=== PATIENT | male | born 1935 | race Caucasian/White ===

== ENCOUNTER 2017-01-22 12:07 | Emergency (ER) | payer MEDICARE, BC ==
[2017-01-22] MEDS ORDERED: cefTRIAXone 1 GM, Lidocaine 1% 2.1 ML IM ONE ×2 (13:54)
--- NOTE | 2017-01-22 13:56 | EDM.PDOC ---
ED HPI GENERAL MEDICAL PROBLEM - General Chief Complaint: Lower Extremity Injury/Pain Stated Complaint: LT FOOT/HEAL PAIN Time Seen by Provider: 01/22/17 12:45 Source of Information: Reports: Patient, Family History Limitations: Reports: No Limitations - History of Present Illness INITIAL COMMENTS - FREE TEXT/NARRATIVE: pt arrived with a very painful heel. He was concerned that he had gotten gout again. he is having trouble ambulating. Onset: Gradual Duration: Day(s): Location: Reports: Lower Extremity, Left Associated Symptoms: Reports: Other ( Pt has marked swelling in the rt leg with weeping. He has wet dressings on alot and the skin looks maserated. ) Left Feet Pain Score (Numeric/FACES): 8 - Related Data Allergies Allergy/AdvReac Type Severity Reaction Status Date / Time codeine Allergy Cannot Verified 01/22/17 12:38 Remember Home Meds: Home Meds Aspirin [Halfprin] 81 mg PO DAILY 06/19/14 [History] Carvedilol 25 mg PO BID 06/19/14 [History] Furosemide [Lasix] 40 mg PO BID 06/19/14 [History] Insulin Glarg,Human.Rec.Analog [Lantus] 70 units SQ BEDTIME 06/19/14 [History] Isosorbide Mononitrate [Isosorbide Mononitrate ER] 30 mg PO BID 06/19/14 [ History] Lisinopril 40 mg PO DAILY 06/19/14 [History] Metolazone 2.5 mg PO MOWEFR 06/19/14 [History] Simvastatin [Zocor] 20 mg PO BEDTIME 06/19/14 [History] amLODIPine [Norvasc] 10 mg PO DAILY 06/19/14 [History] *O2 2 l INH ASDIRECTED 12/09/14 [History] Latanoprost 1 drop TOP BEDTIME 12/09/14 [History] Insulin Aspart [Novolog] 26 unit SQ BID 01/22/17 [History] Past Medical History Cardiovascular History: Reports: CAD, Heart Failure, Hypertension, [place] Respiratory History: Reports: COPD, Other (See Below) Other Respiratory History: Home O2 C pap Genitourinary History: Reports: Renal Disease Other Genitourinary History: Moderate kidney failure known kidney stone Musculoskeletal History: Reports: Gout Endocrine/Metabolic History: Reports: Diabetes, Type II Dermatologic History: Reports: Other (See Below) Other Dermatologic History: ozing legs seconday to edema - Infectious Disease History Infectious Disease History: Reports: Chicken Pox, Measles, Mumps - Past Surgical History HEENT Surgical History: Reports: Cataract Surgery Other HEENT Surgeries/Procedures: laser and eye injections Cardiovascular Surgical History: Reports: Coronary Artery Bypass GI Surgical History: Reports: Hernia, Abdominal Social & Family History - Tobacco Use Smoking Status *Q: Never Smoker Years of Tobacco use: 30 Used Tobacco, but Quit: Yes Month Tobacco Last Used: November Second Hand Smoke Exposure: No - Caffeine Use Caffeine Use: Reports: Coffee - Alcohol Use Days Per Week of Alcohol Use: 7 Number of Drinks Per Day: 2 Total Drinks Per Week: 14 - Recreational Drug Use Recreational Drug Use: No Review of Systems - Review of Systems Review Of Systems: See Below Constitutional: Reports: No Symptoms Eyes: Reports: No Symptoms Ears: Reports: No Symptoms Nose: Reports: No Symptoms Mouth/Throat: Reports: No Symptoms Respiratory: Reports: Other ( no change. ) Cardiovascular: Reports: No Symptoms GI/Abdominal: Reports: No Symptoms Genitourinary: Reports: No Symptoms Musculoskeletal: Reports: Other (pain in the left heel area. ) Neurological: Reports: No Symptoms ED EXAM, GENERAL - Physical Exam Exam: See Below Free Text/Narrative:: pt arrived with marked pain in the left hel. He has marked swelling in the left leg. He has maserated skin omn the calf of the leg He has open area on the heel which looked quite red. Exam Limited By: No Limitations General Appearance: Alert, Anxious Ears: Normal TMs Nose: Normal Inspection Throat/Mouth: Normal Inspection Head: Atraumatic Neck: Normal Inspection Respiratory/Chest: No Respiratory Distress Cardiovascular: Regular Rate, Rhythm GI/Abdominal: Soft, Non-Tender (Male) Exam: Deferred Rectal (Males) Exam: Deferred Extremities: Other ( both legs are wrapped. The rt is doing well. The left is weeping and huge The heel is raw and he has broken the skin. The area where the skin is broken is vey tender, ) Neurological: Alert, Oriented, Normal Cognition Psychiatric: Anxious Course - Vital Signs Last Recorded V/S: Last Vital Signs Temp 36.7 C 01/22/17 13:53 Pulse 58 L 01/22/17 15:00 Resp 18 01/22/17 15:00 BP 188/94 H 01/22/17 15:00 Pulse Ox 91 L 01/22/17 15:00 - Orders/Labs/Meds Labs: Laboratory Tests 01/22/17 Range/Units 13:04 WBC 11.3 H (4.5-11.0) K/uL RBC 4.36 (4.30-5.90) M/uL Hgb 13.6 (12.0-15.0) g/dL Hct 41.6 (40.0-54.0) % MCV 95 (80-98) fL MCH 31 (27-31) pg MCHC 33 (32-36) % Plt Count 235 (150-400) K/uL Neut % (Auto) 82 H (36-66) % Lymph % (Auto) 15 L (24-44) % [place] % (Auto) 3 (2-6) % Eos % (Auto) 0 L (2-4) % Baso % (Auto) 0 (0-1) % Meds: Medications Discontinued Medications Generic Name Dose Route Start Last Admin Trade Name Gabriel PRN Reason Stop Dose Admin Ceftriaxone Sodium 1 gm/ 0 gm 01/22/17 13:54 01/22/17 14:05 Lidocaine HCl 2.1 ml IM 01/22/17 13:55 1 inj ONETIME ONE Administration - Re-Assessments/Exams Free Text/Narrative Re-Assessment/Exam: 01/22/17 15:35 pt had a wbc which was normal. He had other labs yesterday and I did get those values. Dr farmer consulted and will follow this leg. Departure - Departure Time of Disposition: 15:00 Disposition: Home, Self-Care 01 Condition: Fair Clinical Impression: Acute stasis dermatitis, Diabetes - Discharge Information Instructions: Type 2 Diabetes Mellitus, Adult, Edema, [id number] Referrals: Evaristo Browning PA [Primary Care Provider] - Forms: ED Department Discharge Care Plan Goals: Dr Farmer to see and manage pt.
[2017-01-22 17:02] VITALS: BP 188/94
== END 2017-01-22 17:05 | disposition home or self-care (01) ==
LOC: JP.ED 12:07
DX: I87.2 Venous insufficiency (chronic) (peripheral) (principal); E11.9 Type 2 diabetes mellitus without complications; I25.10 Atherosclerotic heart disease of native coronary artery without angina pectoris; I11.0 Hypertensive heart disease with heart failure; I50.9 Heart failure, unspecified; J44.9 Chronic obstructive pulmonary disease, unspecified; I25.2 Old myocardial infarction; Z98.49 Cataract extraction status, unspecified eye; Z95.1 Presence of aortocoronary bypass graft; Z98.890 Other specified postprocedural states; Z88.5 Allergy status to narcotic agent; Z79.82 Long term (current) use of aspirin; Z79.4 Long term (current) use of insulin; Z79.899 Other long term (current) drug therapy
CPT/HCPCS: 36415; 82962; 85025; 96372; 99284; J0696

== ENCOUNTER 2017-01-31 12:14 | Inpatient (IN) | payer MEDICARE, BC ==
[2017-01-31] MEDS ORDERED: Meropenem 500 MG in Sodium Chloride 0.9% 50 ML IV ONE ×2 (12:38→13:15)
--- NOTE | 2017-01-31 13:37 | EDM.PDOC ---
ED HPI GENERAL MEDICAL PROBLEM - General Chief Complaint: General Stated Complaint: PAIN IN LOW BACK Time Seen by Provider: 01/31/17 12:25 Source of Information: Reports: Patient, EMS, Family History Limitations: Reports: No Limitations - History of Present Illness INITIAL COMMENTS - FREE TEXT/NARRATIVE: 81-year-old male undergoing treatment for lower extremity skin lesions and significant lower extremity edema and vascular insufficiency was due to have a wound recheck this afternoon at the clinic but this morning developed shaking chills and fever and was too weak to get out of bed. He denies a new cough, abdominal pain, nausea or vomiting but just has profound weakness. He was supposed to take the dressings off his legs, get cleaned up with a shower and then going to the clinic. He denies dysuria. Onset: Gradual (Symptoms developed overnight) Severity: Moderate Associated Symptoms: Reports: Fever/Chills, Weakness. Denies: Shortness of Breath Bilateral Knee Pain Score (Numeric/FACES): 8 - Related Data Allergies Allergy/AdvReac Type Severity Reaction Status Date / Time codeine Allergy Cannot Verified 01/22/17 12:38 Remember Home Meds: Home Meds Aspirin [Halfprin] 81 mg PO DAILY 06/19/14 [History] Carvedilol 25 mg PO BID 06/19/14 [History] Furosemide [Lasix] 40 mg PO BID 06/19/14 [History] Insulin Glarg,Human.Rec.Analog [Lantus] 70 units SQ BEDTIME 06/19/14 [History] Isosorbide Mononitrate [Isosorbide Mononitrate ER] 30 mg PO BID 06/19/14 [ History] Lisinopril 40 mg PO DAILY 06/19/14 [History] Simvastatin [Zocor] 20 mg PO BEDTIME 06/19/14 [History] *O2 2 l INH ASDIRECTED 12/09/14 [History] Latanoprost 1 drop TOP BEDTIME 12/09/14 [History] Insulin Aspart [Novolog] 26 unit SQ BID 01/22/17 [History] Acetaminophen 1,000 mg PO TID PRN 01/31/17 [History] Allopurinol [Zyloprim] 150 mg PO DAILY 01/31/17 [History] Aspirin 81 mg PO DAILY 01/31/17 [History] Famotidine 20 mg PO BEDTIME 01/31/17 [History] Insulin Degludec [Tresiba Flextouch U-200] 66 unit SUBCNJ DAILY 01/31/17 [ History] Magnesium Oxide 500 mg PO DAILY 01/31/17 [History] Tamsulosin [Flomax] 0.4 mg PO DAILY 01/31/17 [History] Past Medical History Cardiovascular History: Reports: CAD, Heart Failure, Hypertension, [place] Respiratory History: Reports: COPD, Other (See Below) Other Respiratory History: Home O2 C pap Genitourinary History: Reports: Renal Disease Other Genitourinary History: Moderate kidney failure known kidney stone Musculoskeletal History: Reports: Gout Endocrine/Metabolic History: Reports: Diabetes, Type II Dermatologic History: Reports: Other (See Below) Other Dermatologic History: ozing legs seconday to edema - Infectious Disease History Infectious Disease History: Reports: Chicken Pox, Measles, Mumps - Past Surgical History HEENT Surgical History: Reports: Cataract Surgery Other HEENT Surgeries/Procedures: laser and eye injections Cardiovascular Surgical History: Reports: Coronary Artery Bypass GI Surgical History: Reports: Hernia, Abdominal Social & Family History - Tobacco Use Smoking Status *Q: Unknown Ever Smoked Years of Tobacco use: 30 Used Tobacco, but Quit: Yes Month Tobacco Last Used: November Second Hand Smoke Exposure: No - Caffeine Use Caffeine Use: Reports: Coffee - Alcohol Use Days Per Week of Alcohol Use: 7 Number of Drinks Per Day: 2 Total Drinks Per Week: 14 - Recreational Drug Use Recreational Drug Use: No ED ROS GENERAL - Review of Systems Review Of Systems: See Below Constitutional: Reports: Fever, Chills, Malaise, Weakness HEENT: Reports: No Symptoms Respiratory: Reports: Shortness of Breath (Chronic and stable), Cough Cardiovascular: Reports: No Symptoms. Denies: Chest Pain GI/Abdominal: Denies: Abdominal Pain, Nausea, Vomiting : Reports: No Symptoms Skin: Reports: Other (Chronic ulcerations of the lower extremities, exudative weeping from his wound on the posterior left calf) Neurological: Reports: Confusion (Some moderate confusion this morning) Psychiatric: Reports: No Symptoms ED EXAM, SEPSIS - Physical Exam Exam: See Below Exam Limited By: No Limitations General Appearance: Alert, Mild Distress (Chilled, very uncomfortable), Other ( Patient is answering questions appropriately) Respiratory/Chest: No Respiratory Distress, Rhonchi (Diffuse scattered rhonchi) Cardiovascular: Regular Rate, Rhythm GI/Abdominal Exam: Other (Patient is morbidly obese, no focal tenderness to palpation) Extremities: Other (The dressings on his lower extremities were removed and revealed a very warm, erythematous and tender medial left leg to the thigh and almost to the groin. There was malodorous drainage from the posterior wound of the left lower leg.) Neurological: Alert, Oriented Psychiatric: Normal Affect, Normal Mood Course - Vital Signs Last Recorded V/S: Last Vital Signs Temp 103.5 F H 01/31/17 15:49 Pulse 104 H 01/31/17 15:49 Resp 20 01/31/17 15:49 BP 185/116 H 01/31/17 16:10 Pulse Ox 93 L 01/31/17 15:49 - Orders/Labs/Meds Orders: Active Orders 24 hr Category Date Time Status CULTURE BLOOD [BC] Urgent Lab 01/31/17 12:30 Received CULTURE BLOOD [BC] Urgent Lab 01/31/17 12:35 Received Blood Culture x2 Reflex Set [OM.PC] Urgent Oth 01/31/17 12:22 Ordered Medication Orders Acetaminophen (Tylenol Extra Strength) 1,000 mg PO TID [facility] Last Admin: 01/31/17 16:05 Dose: 1,000 mg Albuterol (Proventil Neb Soln) 2.5 mg NEB Q4H PRN PRN Reason: Shortness Of Breath/wheezing Allopurinol (Zyloprim) 100 mg PO DAILY [facility] Aspirin (Aspirin) 81 mg PO DAILY [facility] Carvedilol (Coreg) 25 mg PO BID [facility] Famotidine (Pepcid) 20 mg PO BEDTIME [facility] Heparin Sodium (Porcine) (Heparin Sodium) 5,000 units SUBCUT BID [facility] Hydromorphone HCl (Dilaudid) 0.5 - 1 mg IVPUSH Q2H PRN PRN Reason: Pain (severe 7-10) Vancomycin HCl 1.75 gm/ Sodium (Chloride) 250 mls @ 150 mls/hr IV Q24H JANAK Meropenem 1 gm/ Sodium (Chloride) 50 mls @ 100 mls/hr IV Q8H [facility] Sodium Chloride (Normal Saline) 1,000 mls @ 125 mls/hr IV ASDIRECTED [facility] Last Admin: 01/31/17 15:58 Dose: 125 mls/hr Insulin Aspart (Novolog) 0 unit SUBCUT QIDACANDBED [facility] PRN Reason: Protocol Last Admin: 01/31/17 17:01 Dose: Not Given Insulin Detemir (Levemir) 30 unit SUBCUT BID [facility] Isosorbide Mononitrate (Imdur) 30 mg PO BID [facility] Latanoprost (Xalatan 0.005% Ophth Soln) 0 ml EYEBOTH BEDTIME [facility] Lisinopril (Prinivil) 40 mg PO DAILY [facility] Ondansetron HCl (Zofran Odt) 4 mg PO Q6H PRN PRN Reason: Nausea able to take PO Ondansetron HCl (Zofran) 4 mg IV Q6H PRN PRN Reason: Nausea/Vomiting Oxycodone HCl (Oxycodone) 5 mg PO Q4H PRN PRN Reason: Pain (moderate 4-6) Last Admin: 01/31/17 17:39 Dose: 5 mg Polyethylene Glycol (Miralax) 17 gm PO DAILY PRN PRN Reason: Constipation Tamsulosin HCl (Flomax) 0.4 mg PO DAILY [facility] Labs: Laboratory Tests 01/31/17 01/31/17 01/31/17 Range/Units 12:30 12:30 12:30 WBC 28.8 H (4.5-11.0) K/uL RBC 4.65 (4.30-5.90) M/uL Hgb 14.4 (12.0-15.0) g/dL Hct 44.5 (40.0-54.0) % MCV 96 (80-98) fL MCH 31 (27-31) pg MCHC 32 (32-36) % Plt Count 199 (150-400) K/uL Neut % (Auto) 89 H (36-66) % Lymph % (Auto) 7 L (24-44) % [place] % (Auto) 3 (2-6) % Eos % (Auto) 0 L (2-4) % Baso % (Auto) 0 (0-1) % Sodium 139 L (140-148) mmol/L Potassium 3.8 (3.6-5.2) mmol/L Chloride 100 (100-108) mmol/L Carbon Dioxide 34 H (21-32) mmol/L Anion Gap 8.8 (5.0-14.0) mmol/L BUN 44 H (7-18) mg/dL Creatinine 2.5 H D (0.8-1.3) mg/dL Est Cr Clr Drug Dosing 21.73 mL/min Estimated GFR (MDRD) 25 L (>60) Glucose 151 H (74-106) mg/dL Lactic Acid 1.5 (0.4-2.0) mmol/L Calcium 8.3 L (8.5-10.1) mg/dL Total Bilirubin 0.6 (0.2-1.0) mg/dL AST 31 D (15-37) U/L ALT 42 D (12-78) U/L Alkaline Phosphatase 88 (46-116) U/L C-Reactive Protein 10.64 H (0.0-0.3) mg/dL Total Protein 6.2 L (6.4-8.2) g/dL Albumin 2.6 L (3.4-5.0) g/dL Globulin 3.6 H (2.3-3.5) g/dL Albumin/Globulin Ratio 0.7 L (1.2-2.2) Meds: Medications Generic Name Dose Route Start Last Admin Trade Name Freq PRN Reason Stop Dose Admin Acetaminophen 1,000 mg 01/31/17 15:35 01/31/17 16:05 Tylenol Extra Strength PO 1,000 mg TID JANAK Administration Albuterol 2.5 mg 01/31/17 15:35 Proventil Neb Soln NEB Q4H PRN Shortness Of Breath/wheezing Allopurinol 100 mg 02/01/17 09:00 Zyloprim PO DAILY [facility] Aspirin 81 mg 02/01/17 09:00 Aspirin PO DAILY [facility] Carvedilol 25 mg 01/31/17 21:00 Coreg PO BID [facility] Famotidine 20 mg 01/31/17 21:00 Pepcid PO BEDTIME [facility] Heparin Sodium (Porcine) 5,000 units 01/31/17 21:00 Heparin Sodium SUBCUT BID [facility] Hydromorphone HCl 0.5 - 1 mg 01/31/17 15:35 Dilaudid IVPUSH Q2H PRN Pain (severe 7-10) Vancomycin HCl 1.75 gm/ Sodium 250 mls @ 150 mls/hr 02/01/17 14:00 Chloride IV Q24H JANAK Meropenem 1 gm/ Sodium 50 mls @ 100 mls/hr 01/31/17 20:00 Chloride IV Q8H [facility] Sodium Chloride 1,000 mls @ 125 mls/hr 01/31/17 15:35 01/31/17 15:58 Normal Saline IV 125 mls/hr ASDIRECTED [facility] Administration Insulin Aspart 0 unit 01/31/17 17:00 01/31/17 17:01 Novolog SUBCUT Not Given QIDACANDBED [facility] Protocol Insulin Detemir 30 unit 01/31/17 21:00 Levemir SUBCUT BID [facility] Isosorbide Mononitrate 30 mg 01/31/17 21:00 Imdur PO BID [facility] Latanoprost 0 ml 01/31/17 21:00 Xalatan 0.005% Ophth Soln EYEBOTH BEDTIME [facility] Lisinopril 40 mg 02/01/17 09:00 Prinivil PO DAILY [facility] Ondansetron HCl 4 mg 01/31/17 15:35 Zofran Odt PO Q6H PRN Nausea able to take PO Ondansetron HCl 4 mg 01/31/17 15:35 Zofran IV Q6H PRN Nausea/Vomiting Oxycodone HCl 5 mg 01/31/17 15:35 01/31/17 17:39 Oxycodone PO 5 mg Q4H PRN Administration Pain (moderate 4-6) Polyethylene Glycol 17 gm 01/31/17 15:35 Miralax PO DAILY PRN Constipation Tamsulosin HCl 0.4 mg 02/01/17 09:00 Flomax PO DAILY [facility] Discontinued Medications Generic Name Dose Route Start Last Admin Trade Name Freq PRN Reason Stop Dose Admin Meropenem 500 mg/ Sodium 50 mls @ 100 mls/hr 01/31/17 13:15 01/31/17 13:19 Chloride IV 01/31/17 13:44 100 mls/hr ONETIME ONE Administration Vancomycin HCl 1.75 gm/ Sodium 250 mls @ 150 mls/hr 01/31/17 14:00 01/31/17 14:07 Chloride IV 150 mls/hr Q24H [facility] Administration - Re-Assessments/Exams Free Text/Narrative Re-Assessment/Exam: 01/31/17 13:36 With a temperature of 103.8, a large source of infection on the left leg and chills, the patient workup and treatment was initiated under the sepsis protocol. Fluid replacement was started, blood cultures were obtained, lactic acid, CBC and CMP. A CRP was markedly elevated as well as the white count, however lactic acid was normal. He was started on 500 mg of IV meropenem. Dr. De La Rosa of the hospitalist service was asked to be consulted to assist with treatment and admission Departure - Departure Time of Disposition: 15:53 Disposition: Admitted As Inpatient 68 Condition: Poor Clinical Impression: Cellulitis of leg, left, Sepsis due to cellulitis, CKD (chronic kidney disease) , stage III, Diabetes mellitus, type II, insulin dependent - Discharge Information - My Orders Last 24 Hours: My Active Orders 01/31/17 12:22 Blood Culture x2 Reflex Set [OM.PC] Urgent 01/31/17 12:30 CULTURE BLOOD [BC] Urgent 01/31/17 12:35 CULTURE BLOOD [BC] Urgent - Assessment/Plan Last 24 Hours: My Active Orders 01/31/17 12:22 Blood Culture x2 Reflex Set [OM.PC] Urgent 01/31/17 12:30 CULTURE BLOOD [BC] Urgent 01/31/17 12:35 CULTURE BLOOD [BC] Urgent
--- NOTE | 2017-01-31 14:11 | PCM.HP ---
H&P History of Present Illness - General Date of Service: 01/31/17 Admit Problem/Dx: Admission Diagnosis/Problem Admission Diagnosis/Problem Cellulitis of leg Source of Information: Patient, Family, Provider History Limitations: Reports: No Limitations - History of Present Illness Initial Comments - Free Text/Narative: Blair presents to the emergency room today with fever, weakness and lethargy. He reports onset of fever sometime last night when he noted chills as well as subjective fevers. No temperatures were measured at home. He has had progressive weakness since that time. He notes increasing aching pain in his left ankle that has spread up into his left calf and up into the thigh. Pain has been moderate and is worse with any sort of pressure. He hasn't taken anything at home to make it feel better. Heel pain seems to be getting worse but has been present for a couple of weeks. He feels like he is a little more short of breath than usual but does not have much in the way of a cough. Appetite and energy have both been decreased for the past 24 hours. He was too weak to get out of bed this morning so he called an ambulance. Workup in the emergency room has revealed an impressive cellulitis and lymphangitis of the left leg. He has an open wound on the left medial lower leg that has serosanguineous and some mild. With drainage noted. He has been started on antibiotics and will be admitted for management of cellulitis. - Related Data Allergies/Adverse Reactions: Allergies Allergy/AdvReac Type Severity Reaction Status Date / Time codeine Allergy Cannot Verified 01/22/17 12:38 Remember Home Medications: Home Meds Aspirin [Halfprin] 81 mg PO DAILY 06/19/14 [History] Carvedilol 25 mg PO BID 06/19/14 [History] Furosemide [Lasix] 40 mg PO BID 06/19/14 [History] Insulin Glarg,Human.Rec.Analog [Lantus] 70 units SQ BEDTIME 06/19/14 [History] Isosorbide Mononitrate [Isosorbide Mononitrate ER] 30 mg PO BID 06/19/14 [ History] Lisinopril 40 mg PO DAILY 06/19/14 [History] Simvastatin [Zocor] 20 mg PO BEDTIME 06/19/14 [History] *O2 2 l INH ASDIRECTED 12/09/14 [History] Latanoprost 1 drop TOP BEDTIME 12/09/14 [History] Insulin Aspart [Novolog] 26 unit SQ BID 01/22/17 [History] Acetaminophen 1,000 mg PO TID PRN 01/31/17 [History] Allopurinol [Zyloprim] 150 mg PO DAILY 01/31/17 [History] Aspirin 81 mg PO DAILY 01/31/17 [History] Famotidine 20 mg PO BEDTIME 01/31/17 [History] Insulin Degludec [Tresiba Flextouch U-200] 66 unit SUBCNJ DAILY 01/31/17 [ History] Magnesium Oxide 500 mg PO DAILY 01/31/17 [History] Tamsulosin [Flomax] 0.4 mg PO DAILY 01/31/17 [History] Past Medical History Cardiovascular History: Reports: CAD, Heart Failure, Hypertension, [place] Respiratory History: Reports: COPD, Other (See Below) Other Respiratory History: Home O2 C pap Genitourinary History: Reports: Renal Disease Other Genitourinary History: Moderate kidney failure known kidney stone Musculoskeletal History: Reports: Gout Endocrine/Metabolic History: Reports: Diabetes, Type II Dermatologic History: Reports: Other (See Below) Other Dermatologic History: ozing legs seconday to edema - Infectious Disease History Infectious Disease History: Reports: Chicken Pox, Measles, Mumps - Past Surgical History HEENT Surgical History: Reports: Cataract Surgery Other HEENT Surgeries/Procedures: laser and eye injections Cardiovascular Surgical History: Reports: Coronary Artery Bypass GI Surgical History: Reports: Hernia, Abdominal Social & Family History - Family History Endocrine/Metabolic: Reports: Diabetes, type II - Tobacco Use Smoking Status *Q: Unknown Ever Smoked Years of Tobacco use: 30 Used Tobacco, but Quit: Yes Month Tobacco Last Used: November Second Hand Smoke Exposure: No - Caffeine Use Caffeine Use: Reports: Coffee - Alcohol Use Days Per Week of Alcohol Use: 7 Number of Drinks Per Day: 2 Total Drinks Per Week: 14 - Recreational Drug Use Recreational Drug Use: No H&P Review of Systems - Review of Systems: Review Of Systems: See Below Free Text/Narrative: A complete 12 point review of systems was obtained. Pertinent positives and negatives are noted in the history of present illness. All other systems were reviewed and were negative except as noted. Exam - Exam Exam: See Below - Vital Signs Vital Signs: Last Vital Signs Temp 39.9 C H 01/31/17 12:21 Pulse 91 01/31/17 12:58 Resp 20 01/31/17 12:58 BP 205/92 H 01/31/17 12:58 Pulse Ox 96 01/31/17 12:58 Weight: 120.656 kg - Exam Quality Assessment: Supplemental Oxygen General: Alert, Oriented, Cooperative, Mild Distress HEENT: Conjunctiva Clear. No: Mucosa Moist & [place] (dry), Scleral Icterus Neck: Supple, Trachea Midline Lungs: Clear to Auscultation, Normal Respiratory Effort Cardiovascular: Regular Rate, Regular Rhythm, Systolic Murmur GI/Abdominal Exam: Normal Bowel Sounds, Soft, Non-Tender, No Distention, Other ( obese) Extremities: Pedal Edema (pitting edema to the knee on the left, minimal on the right), Increased Warmth (left medial leg from foot to thigh). No: Joint Swelling Skin: Warm, Dry, Rash (erythema right medial thigh. large open area left medial leg with some ss drainage and some mild purulent drainage) Neuro Extensive - Mental Status: Alert, Oriented x3, Nl Response to Commands Neuro Extensive - Motor, Sensory, Reflexes: CN II-XII Intact. No: Dysarthria, Abnormal Motor, Tremor Psychiatric: Alert, Normal Affect - Patient Data Lab Results Last 24 hrs: Laboratory Results - last 24 hr 01/31/17 01/31/17 01/31/17 Range/Units 12:30 12:30 12:30 WBC 28.8 H (4.5-11.0) K/uL RBC 4.65 (4.30-5.90) M/uL Hgb 14.4 (12.0-15.0) g/dL Hct 44.5 (40.0-54.0) % MCV 96 (80-98) fL MCH 31 (27-31) pg MCHC 32 (32-36) % Plt Count 199 (150-400) K/uL Neut % (Auto) 89 H (36-66) % Lymph % (Auto) 7 L (24-44) % [place] % (Auto) 3 (2-6) % Eos % (Auto) 0 L (2-4) % Baso % (Auto) 0 (0-1) % Sodium 139 L (140-148) mmol/L Potassium 3.8 (3.6-5.2) mmol/L Chloride 100 (100-108) mmol/L Carbon Dioxide 34 H (21-32) mmol/L Anion Gap 8.8 (5.0-14.0) mmol/L BUN 44 H (7-18) mg/dL Creatinine 2.5 H D (0.8-1.3) mg/dL Est Cr Clr Drug Dosing 21.73 mL/min Estimated GFR (MDRD) 25 L (>60) Glucose 151 H (74-106) mg/dL Lactic Acid 1.5 (0.4-2.0) mmol/L Calcium 8.3 L (8.5-10.1) mg/dL Total Bilirubin 0.6 (0.2-1.0) mg/dL AST 31 D (15-37) U/L ALT 42 D (12-78) U/L Alkaline Phosphatase 88 (46-116) U/L C-Reactive Protein 10.64 H (0.0-0.3) mg/dL Total Protein 6.2 L (6.4-8.2) g/dL Albumin 2.6 L (3.4-5.0) g/dL Globulin 3.6 H (2.3-3.5) g/dL Albumin/Globulin Ratio 0.7 L (1.2-2.2) Result Diagrams: 01/31/17 12:30 01/31/17 12:30 *Q Meaningful Use (ADM) - VTE *Q VTE Criteria *Q: VTE Mechanical Contraindications *Q: Bilateral Lower Edema - VTE Risk Assess *Q Each Risk Factor Represents 1 Point: Swollen Legs, Current, Abnormal Pulmonary Function (COPD) Total Score 1 Point Risk Factors: 2 Each Risk Factor Represents 2 Points: Morbid Obesity (BMI Greater than 40) Total Score 2 Point Risk Factors: 2 Each Risk Factor Represents 3 Points: Age 75 Years or Greater Total Score 3 Point Risk Factors: 3 Each Risk Factor Represents 5 Points: None Total Score 5 Point Risk Factors: 0 Venous Thromboembolism Risk Factor Score *Q: 7 - Stroke *Q Stroke Criteria *Q: - AMI *Q AMI Criteria *Q: - Problem List (1) Cellulitis of leg, left SNOMED Code(s): 710595914 ICD Code: L03.116 - CELLULITIS OF LEFT LOWER LIMB Status: Acute Current Visit: Yes (2) Acute kidney injury SNOMED Code(s): 27996198 ICD Code: N17.9 - ACUTE KIDNEY FAILURE, UNSPECIFIED Status: Acute Current Visit: Yes (3) Diabetes mellitus, type II, insulin dependent SNOMED Code(s): 315714758 ICD Code: E11.9 - TYPE 2 DIABETES MELLITUS WITHOUT COMPLICATIONS; Z79.4 - ROAD CONTRACTOR (CURRENT) USE OF INSULIN Status: Chronic Current Visit: Yes (4) COPD (chronic obstructive pulmonary disease) SNOMED Code(s): 92584107 ICD Code: J44.9 - CHRONIC OBSTRUCTIVE PULMONARY DISEASE, UNSPECIFIED Status : Chronic Current Visit: Yes Qualifiers: COPD type: unspecified COPD Qualified Code(s): J44.9 - Chronic obstructive pulmonary disease, unspecified (5) Diastolic congestive heart failure SNOMED Code(s): 852435133, 828638070 ICD Code: I50.30 - UNSPECIFIED DIASTOLIC (CONGESTIVE) HEART FAILURE Status : Chronic Current Visit: Yes Qualifiers: Congestive heart failure chronicity: chronic Qualified Code(s): I50.32 - Chronic diastolic (congestive) heart failure Problem List Initiated/Reviewed/Updated: Yes Orders Last 24hrs: Active Orders 24 hr Category Date Time Status Patient Status Manage Transfer [TRANSFER] Routine ADT 01/31/17 13:50 Ordered Vital Signs [RC] Q1H Care 01/31/17 12:22 Active CULTURE BLOOD [BC] Urgent Lab 01/31/17 12:30 Received CULTURE BLOOD [BC] Urgent Lab 01/31/17 12:35 Received Vancomycin 1.75 gm Med 01/31/17 14:00 Active Sodium Chloride 0.9% [Normal Saline] 250 ml IV Q24H Blood Culture x2 Reflex Set [OM.PC] Urgent Oth 01/31/17 12:22 Ordered Resuscitation Status Routine Resus Stat 01/31/17 13:52 Ordered Medication Orders Vancomycin HCl 1.75 gm/ Sodium (Chloride) 250 mls @ 150 mls/hr IV Q24H JANAK Assessment/Plan Comment:: Assessment and plan - Cellulitis and lymphangitis left leg - open wound on the left medial leg probably secondary to poor skin quality of the setting of chronic lymphedema and diabetes. There is no evidence for sepsis at this time with normal blood pressure and normal heart rate. With his diabetes he is at risk for a variety of organisms. No history of MRSA. Not safe for outpatient management at this time with significant fever and leukocytosis as well as his weakness. -Vancomycin and meropenem -Follow-up blood cultures -Consult Dr. Farmer for assistance with wound care -Pain control -Heel padding to reduce heel pain -Leave wound open to the air tonight for close monitoring, wound care will be readdressed tomorrow -Outpatient lymphedema management Acute kidney injury - probably secondary to acute infection. He would benefit from IV fluids to help optimize intravascular volume status. -IV fluids through the day and repeat labs tomorrow Diastolic congestive heart failure - appears to be fairly well compensated at this time. No significant edema of the right leg. He is on his baseline supplemental oxygen. -Continue medical management Insulin-dependent diabetes mellitus - appetite has been poor, planning to reduce usual insulin dosing until appetite improves. -Levemir 30 units twice daily -Sliding-scale insulin COPD, oxygen dependent - patient normally uses 2 L of oxygen at home. He is mildly short of breath compared to baseline which may be related to the infection with no evidence for pulmonary infection at this time based on history or examination. -Supplemental oxygen Maintenance issues - - DVT prophylaxis - heparin - GI prophylaxis - H2 valente - Nutrition - consistent carbohydrates - Musa catheter - not indicated CODE STATUS - full code Admission justification - This patient will be admitted for inpatient services and is medically appropriate meeting medical necessity for inpatient admission as outlined in my documentation. I reasonably expect the patient will require inpatient services that span a period time over 2 midnights. I reasonably expect this patient to be discharged or transferred within 96 hours [facility]. Disposition - anticipate discharge to home possibly with home health care after the hospital stay Primary care physician - Colton De La Rosa M.D.
[2017-01-31] MEDS ORDERED: HYDROmorphone 0.5 MG/0.5 ML Syringe IVPUSH PRN (15:35)
[2017-01-31] MEDS ORDERED: Ondansetron 4 MG Tab.DIS PO PRN (15:35)
[2017-01-31] MEDS ORDERED: Ondansetron 4 MG/2 ML SDV IV PRN (15:35)
[2017-01-31] MEDS ORDERED: Polyethylene Glycol 3350 Powder 17 GM Packet PO PRN (15:35)
[2017-01-31] MEDS: Sodium Chloride 0.9% 1,000 ML IV SCH (15:58)
[2017-01-31] MEDS: Acetaminophen 500 MG Tab PO SCH ×2 (16:05→22:09)
[2017-01-31] MEDS: Insulin Aspart 100 Units/ML 3 ML Pen SUBCUT SCH ×2 (17:01→20:15)
[2017-01-31] MEDS: oxyCODONE 5 MG Tab PO PRN (17:39)
[2017-01-31] MEDS: Isosorbide Mononitrate 30 MG Tab.ER PO SCH (22:04)
[2017-01-31] MEDS: Carvedilol 25 MG Tab PO SCH (22:05)
[2017-01-31] MEDS: Heparin Sodium 5,000 Units/ML Vial SUBCUT SCH (22:06)
[2017-01-31] MEDS: Insulin Detemir 100 Units/ML 3 ML Pen SUBCUT SCH (22:08)
[2017-01-31] MEDS: Latanoprost 0.005% Ophth Soln 2.5 ML Bottle EYEBOTH SCH (22:09)
[2017-01-31] MEDS: Famotidine 20 MG Tab PO SCH (22:10)
[2017-02-01] MEDS: Sodium Chloride 0.9% 1,000 ML IV SCH ×2 (00:37→09:09)
[2017-02-01] MEDS: oxyCODONE 5 MG Tab PO PRN (04:37)
[2017-02-01] MEDS: Insulin Aspart 100 Units/ML 3 ML Pen SUBCUT SCH ×4 (08:04→21:17)
[2017-02-01] MEDS: Lisinopril 20 MG Tab PO SCH (09:01)
[2017-02-01] MEDS: Carvedilol 25 MG Tab PO SCH ×2 (09:02→21:22)
[2017-02-01] MEDS: Heparin Sodium 5,000 Units/ML Vial SUBCUT SCH ×2 (09:02→21:17)
[2017-02-01] MEDS: Isosorbide Mononitrate 30 MG Tab.ER PO SCH ×2 (09:02→21:18)
[2017-02-01] MEDS: Allopurinol 100 MG Tab PO SCH (09:02)
[2017-02-01] MEDS: Aspirin 81 MG Tab.Chew PO SCH (09:02)
[2017-02-01] MEDS: Acetaminophen 500 MG Tab PO SCH ×3 (09:02→21:18)
[2017-02-01] MEDS: Insulin Detemir 100 Units/ML 3 ML Pen SUBCUT SCH ×2 (09:03→21:21)
--- NOTE | 2017-02-01 10:04 | PCM.PN ---
- General Info Date of Service: 02/01/17 Functional Status: Reports: Pain Controlled - Review of Systems General: Reports: Weakness. Denies: Fever Pulmonary: Denies: Shortness of Breath Musculoskeletal: Reports: Leg Pain, Foot Pain Systems Review Comment:: No acute events overnight. Left leg pain has improved some compared to yesterday but persists. Still having a fair amount of pain in the left heel area. He has not had any fevers. Cultures are negative so far. Shortness of breath is stable. White blood cell count has improved. Appetite and energy are slightly better today. - Patient Data Vitals - Most Recent: Last Vital Signs Temp 37.9 C 02/01/17 08:20 Pulse 60 02/01/17 09:02 Resp 20 02/01/17 08:20 BP 194/85 H 02/01/17 09:02 Pulse Ox 99 02/01/17 08:20 Weight - Most Recent: 119.386 kg I&O - Last 24 Hours: Intake & Output 01/31/17 02/01/17 02/01/17 22:59 06:59 14:59 Intake Total 553 1771 480 Output Total 200 200 250 Balance 353 1571 230 Lab Results Last 24 Hours: Laboratory Results - last 24 hr 02/01/17 02/01/17 02/01/17 Range/Units 04:30 04:30 04:30 WBC 18.7 H (4.5-11.0) K/uL RBC 4.32 (4.30-5.90) M/uL Hgb 13.3 (12.0-15.0) g/dL Hct 42.4 (40.0-54.0) % MCV 98 (80-98) fL MCH 31 (27-31) pg MCHC 31 L (32-36) % Plt Count 168 (150-400) K/uL PT 11.0 (9.5-12.0) sec INR 1.03 (0.80-1.20) Sodium 141 (140-148) mmol/L Potassium 3.6 (3.6-5.2) mmol/L Chloride 104 (100-108) mmol/L Carbon Dioxide 31 (21-32) mmol/L Anion Gap 5.7 (5.0-14.0) mmol/L BUN 41 H (7-18) mg/dL Creatinine 2.4 H (0.8-1.3) mg/dL Est Cr Clr Drug Dosing 22.64 mL/min Estimated GFR (MDRD) 26 L (>60) Glucose 128 H (74-106) mg/dL Calcium 8.2 L (8.5-10.1) mg/dL Med Orders - Current: Current Medications Acetaminophen (Tylenol Extra Strength) 1,000 mg PO TID [facility] Last Admin: 02/01/17 09:02 Dose: 1,000 mg Albuterol (Proventil Neb Soln) 2.5 mg NEB Q4H PRN PRN Reason: Shortness Of Breath/wheezing Allopurinol (Zyloprim) 100 mg PO DAILY [facility] Last Admin: 02/01/17 09:02 Dose: 100 mg Aspirin (Aspirin) 81 mg PO DAILY [facility] Last Admin: 02/01/17 09:02 Dose: 81 mg Carvedilol (Coreg) 25 mg PO BID [facility] Last Admin: 02/01/17 09:02 Dose: 25 mg Famotidine (Pepcid) 20 mg PO BEDTIME [facility] Last Admin: 01/31/17 22:10 Dose: 20 mg Heparin Sodium (Porcine) (Heparin Sodium) 5,000 units SUBCUT BID [facility] Last Admin: 02/01/17 09:02 Dose: 5,000 units Hydromorphone HCl (Dilaudid) 0.5 - 1 mg IVPUSH Q2H PRN PRN Reason: Pain (severe 7-10) Vancomycin HCl 1.75 gm/ Sodium (Chloride) 250 mls @ 150 mls/hr IV Q24H [facility] Meropenem 1 gm/ Sodium (Chloride) 50 mls @ 100 mls/hr IV Q8H [facility] Last Admin: 02/01/17 04:03 Dose: 100 mls/hr Insulin Aspart (Novolog) 0 unit SUBCUT QIDACANDBED [facility] PRN Reason: Protocol Last Admin: 02/01/17 08:04 Dose: Not Given Insulin Detemir (Levemir) 30 unit SUBCUT BID [facility] Last Admin: 02/01/17 09:03 Dose: 30 units Isosorbide Mononitrate (Imdur) 30 mg PO BID [facility] Last Admin: 02/01/17 09:02 Dose: 30 mg Latanoprost (Xalatan 0.005% Ophth Soln) 0 ml EYEBOTH BEDTIME [facility] Last Admin: 01/31/17 22:09 Dose: 1 drop Lisinopril (Prinivil) 40 mg PO DAILY [facility] Last Admin: 02/01/17 09:01 Dose: 40 mg Ondansetron HCl (Zofran Odt) 4 mg PO Q6H PRN PRN Reason: Nausea able to take PO Ondansetron HCl (Zofran) 4 mg IV Q6H PRN PRN Reason: Nausea/Vomiting Oxycodone HCl (Oxycodone) 5 mg PO Q4H PRN PRN Reason: Pain (moderate 4-6) Last Admin: 02/01/17 04:37 Dose: 5 mg Polyethylene Glycol (Miralax) 17 gm PO DAILY PRN PRN Reason: Constipation Tamsulosin HCl (Flomax) 0.4 mg PO DAILY [facility] Discontinued Medications Meropenem 500 mg/ Sodium (Chloride) 50 mls @ 100 mls/hr IV ONETIME ONE Stop: 01/31/17 13:44 Last Admin: 01/31/17 13:19 Dose: 100 mls/hr Vancomycin HCl 1.75 gm/ Sodium (Chloride) 250 mls @ 150 mls/hr IV Q24H [facility] Last Admin: 01/31/17 14:07 Dose: 150 mls/hr Sodium Chloride (Normal Saline) 1,000 mls @ 125 mls/hr IV ASDIRECTED [facility] Last Admin: 02/01/17 09:09 Dose: 125 mls/hr - Exam Quality Assessment: Supplemental Oxygen General: Alert, Oriented, Cooperative, No Acute Distress Neck: Supple Lungs: Clear to Auscultation, Normal Respiratory Effort, Decreased Breath Sounds (both bases) Cardiovascular: Regular Rate, Regular Rhythm GI/Abdominal Exam: Soft, No Distention Extremities: Pedal Edema (mild right leg, diffuse pititing edema right leg) Skin: Warm, Dry, Rash (erythema left medial leg from ankle to the groin worst around the open area of skin on posterior right lower leg. Mild ss drainage from the leg. 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 OF INSULIN Status: Chronic Current Visit: Yes (4) COPD (chronic obstructive pulmonary disease) SNOMED Code(s): 09777810 Code(s): J44.9 - CHRONIC OBSTRUCTIVE PULMONARY DISEASE, UNSPECIFIED Status : Chronic Current Visit: Yes Qualifiers: COPD type: unspecified COPD Qualified Code(s): J44.9 - Chronic obstructive pulmonary disease, unspecified (5) Diastolic congestive heart failure SNOMED Code(s): 090576010, 234476964 Code(s): I50.30 - UNSPECIFIED DIASTOLIC (CONGESTIVE) HEART FAILURE Status: Chronic Current Visit: Yes Qualifiers: Congestive heart failure chronicity: chronic Qualified Code(s): I50.32 - Chronic diastolic (congestive) heart failure - Problem List Review Problem List Initiated/Reviewed/Updated: Yes - My Orders Last 24 Hours: My Active Orders 01/31/17 13:52 Resuscitation Status Routine 01/31/17 15:35 Patient Status [ADT] Routine Communication Order [RC] DAILY Communication Order [RC] PRN Communication Order [RC] PRN Diabetes Education [RC] Click to Edit Intake and Output [RC] QSHIFT Notify Provider Consults [RC] ASDIRECTED Notify Provider Vital Signs [RC] ASDIRECTED Notify Provider [RC] PRN Oxygen Therapy [RC] PRN RT Aerosol Therapy [RC] ASDIRECTED Up With Assistance [RC] ASDIRECTED VTE/DVT Education [RC] Per Unit Routine Vital Signs [RC] Q4H Consult to Physician [CONS] Routine Albuterol [Proventil Neb Soln] 2.5 mg NEB Q4H PRN HYDROmorphone [Dilaudid] 0.5 - 1 mg IVPUSH Q2H PRN Ondansetron [Zofran ODT] 4 mg PO Q6H PRN Ondansetron [Zofran] 4 mg IV Q6H PRN Polyethylene Glycol 3350 [MiraLAX] 17 gm PO DAILY PRN oxyCODONE 5 mg PO Q4H PRN VTE Mechanical Contraindications [AST] Per Unit Routine 01/31/17 17:00 Insulin Aspart [NovoLOG] See Protocol SUBCUT QIDACANDBED 01/31/17 20:00 Meropenem [Merrem] 1 gm Sodium Chloride 0.9% [Normal Saline] 50 ml IV Q8H 01/31/17 21:00 Heparin Sodium 5,000 units SUBCUT BID Insulin Detemir [Levemir] 30 unit SUBCUT BID 01/31/17 Dinner Consistent Carbohydrate Diet [DIET] 02/01/17 09:57 Foot wo Cont Lt [CT] Routine 02/01/17 09:58 Convert IV to Saline Lock [OM.PC] Routine 02/01/17 11:30 GLUCOSE POC LAB TO COLLECT [POC] QIDACANDBED 02/01/17 14:00 Torsemide [Demadex] 40 mg PO BIDDIURETIC Vancomycin 1.75 gm Sodium Chloride 0.9% [Normal Saline] 250 ml IV Q24H 02/01/17 16:30 GLUCOSE POC LAB TO COLLECT [POC] QIDACANDBED 02/01/17 21:00 GLUCOSE POC LAB TO COLLECT [POC] QIDACANDBED 02/02/17 05:00 BASIC METABOLIC PANEL,BMP [CHEM] Timed CBC W/O DIFF,HEMOGRAM [HEME] Timed (1) 02/02/17 07:30 GLUCOSE POC LAB TO COLLECT [POC] QIDACANDBED 02/02/17 11:30 GLUCOSE POC LAB TO COLLECT [POC] QIDACANDBED 02/02/17 16:30 GLUCOSE POC LAB TO COLLECT [POC] QIDACANDBED 02/02/17 21:00 GLUCOSE POC LAB TO COLLECT [POC] QIDACANDBED 02/03/17 07:30 GLUCOSE POC LAB TO COLLECT [POC] QIDACANDBED 02/03/17 11:30 GLUCOSE POC LAB TO COLLECT [POC] QIDACANDBED 02/03/17 16:30 GLUCOSE POC LAB TO COLLECT [POC] QIDACANDBED 02/03/17 21:00 GLUCOSE POC LAB TO COLLECT [POC] QIDACANDBED 02/04/17 07:30 GLUCOSE POC LAB TO COLLECT [POC] QIDACANDBED 02/04/17 11:30 GLUCOSE POC LAB TO COLLECT [POC] QIDACANDBED 02/04/17 16:30 GLUCOSE POC LAB TO COLLECT [POC] QIDACANDBED 02/04/17 21:00 GLUCOSE POC LAB TO COLLECT [POC] QIDACANDBED 02/05/17 07:30 GLUCOSE POC LAB TO COLLECT [POC] QIDACANDBED 02/05/17 11:30 GLUCOSE POC LAB TO COLLECT [POC] QIDACANDBED 02/05/17 16:30 GLUCOSE POC LAB TO COLLECT [POC] QIDACANDBED 02/05/17 21:00 GLUCOSE POC LAB TO COLLECT [POC] QIDACANDBED 02/06/17 07:30 GLUCOSE POC LAB TO COLLECT [POC] QIDACANDBED 02/06/17 11:30 GLUCOSE POC LAB TO COLLECT [POC] QIDACANDBED 02/06/17 16:30 GLUCOSE POC LAB TO COLLECT [POC] QIDACANDBED 02/06/17 21:00 GLUCOSE POC LAB TO COLLECT [POC] QIDACANDBED 02/07/17 07:30 GLUCOSE POC LAB TO COLLECT [POC] QIDACANDBED 02/07/17 11:30 GLUCOSE POC LAB TO COLLECT [POC] QIDACANDBED 02/07/17 16:30 GLUCOSE POC LAB TO COLLECT [POC] QIDACANDBED 02/07/17 21:00 GLUCOSE POC LAB TO COLLECT [POC] QIDACANDBED 02/08/17 07:30 GLUCOSE POC LAB TO COLLECT [POC] QIDACANDBED 02/08/17 11:30 GLUCOSE POC LAB TO COLLECT [POC] QIDACANDBED 02/08/17 16:30 GLUCOSE POC LAB TO COLLECT [POC] QIDACANDBED - Plan Plan:: Assessment and plan - Cellulitis and lymphangitis left leg - open wound on the left medial leg probably secondary to poor skin quality of the setting of chronic lymphedema and diabetes. Clinically seems to be improving today with less swelling and pain. Cultures are pending at this time but negative so far. -Vancomycin and meropenem -CT of the foot to rule out abscess -Follow-up blood cultures -Consult Dr. Farmer for assistance with wound care -Pain control -Heel padding to reduce heel pain -Outpatient lymphedema management Acute kidney injury - kidney function stable to slightly improved. Volume appears to be optimized at this time. -Saline lock IV -Labs in the morning Diastolic congestive heart failure - appears to be fairly well compensated at this time. No significant edema of the right leg. He is on his baseline supplemental oxygen. -Continue medical management Insulin-dependent diabetes mellitus - appetite has been poor, sugars stable so far. -Levemir 30 units twice daily -Sliding-scale insulin COPD, oxygen dependent - patient normally uses 2 L of oxygen at home. Respiratory status currently at baseline. -Supplemental oxygen Maintenance issues - - DVT prophylaxis - heparin - GI prophylaxis - H2 valente - Nutrition - consistent carbohydrates Disposition - anticipate discharge to home with home health care after the hospital stay Lance De La Rosa M.D.
[2017-02-01] MEDS: Tamsulosin 0.4 MG Cap.ER PO SCH (11:18)
--- NOTE | 2017-02-01 12:28 | CT ---
Foot wo Cont Lt HISTORY: Pain, fever. Dose: Total DLP 314. COMPARISON: None FINDINGS: There is diffuse subcutaneous edema presently representing cellulitis. No focal fluid colle ctions or abscess seen. There is some mild bone demineralization. I do not see fracture no bony destr uctive change to suggest osteomyelitis. The bony alignment is normal. Mild degenerative change diffus el. Impression: 1. No findings to suggest osteomyelitis. 2. Probable diffuse cellulitis with diffuse subcutaneous edema and skin thickening.
[2017-02-01] MEDS: Torsemide 20 MG Tab PO SCH (13:56)
[2017-02-01] MEDS: Famotidine 20 MG Tab PO SCH (21:18)
[2017-02-01] MEDS: Latanoprost 0.005% Ophth Soln 2.5 ML Bottle EYEBOTH SCH (21:18)
[2017-02-02] MEDS: oxyCODONE 5 MG Tab PO PRN (05:04)
[2017-02-02] MEDS: Allopurinol 100 MG Tab PO SCH (08:31)
[2017-02-02] MEDS: Aspirin 81 MG Tab.Chew PO SCH (08:31)
[2017-02-02] MEDS: Tamsulosin 0.4 MG Cap.ER PO SCH (08:31)
[2017-02-02] MEDS: Lisinopril 20 MG Tab PO SCH (08:32)
[2017-02-02] MEDS: Acetaminophen 500 MG Tab PO SCH ×3 (08:32→20:12)
[2017-02-02] MEDS: Torsemide 20 MG Tab PO SCH ×2 (08:32→13:38)
[2017-02-02] MEDS: Isosorbide Mononitrate 30 MG Tab.ER PO SCH ×2 (08:32→20:11)
[2017-02-02] MEDS: Heparin Sodium 5,000 Units/ML Vial SUBCUT SCH ×2 (08:33→20:10)
[2017-02-02] MEDS: Carvedilol 25 MG Tab PO SCH ×2 (08:33→20:08)
[2017-02-02] MEDS: Insulin Aspart 100 Units/ML 3 ML Pen SUBCUT SCH ×4 (08:34→20:55)
[2017-02-02] MEDS: Insulin Detemir 100 Units/ML 3 ML Pen SUBCUT SCH ×2 (08:36→20:58)
--- NOTE | 2017-02-02 12:26 | PCM.PN ---
- General Info Date of Service: 02/02/17 - Review of Systems General: Reports: Weakness. Denies: Fever Pulmonary: Denies: Shortness of Breath Musculoskeletal: Reports: Leg Pain Systems Review Comment:: No acute events overnight but he did have a low blood sugar this morning. This did respond to the usual protocol. Appetite has not been great but has been a little better. Left leg pain is steadily improving as is the redness and induration. No complaints of shortness of breath. No positive cultures as of now. Kidney function slowly improving. - Patient Data Vitals - Most Recent: Last Vital Signs Temp 37.6 C 02/02/17 10:27 Pulse 57 L 02/02/17 10:27 Resp 18 02/02/17 10:27 BP 167/68 H 02/02/17 10:27 Pulse Ox 95 02/02/17 10:27 Weight - Most Recent: 121.79 kg I&O - Last 24 Hours: Intake & Output 02/01/17 02/02/17 02/02/17 22:59 06:59 14:59 Intake Total 295 2533 360 Output Total 650 350 Balance -355 2183 360 Lab Results Last 24 Hours: Laboratory Results - last 24 hr 02/02/17 02/02/17 Range/Units 04:40 04:40 WBC 13.6 H (4.5-11.0) K/uL RBC 3.80 L (4.30-5.90) M/uL Hgb 11.6 L (12.0-15.0) g/dL Hct 37.3 L (40.0-54.0) % MCV 98 (80-98) fL MCH 31 (27-31) pg MCHC 31 L (32-36) % Plt Count 168 (150-400) K/uL Sodium 140 (140-148) mmol/L Potassium 3.4 L (3.6-5.2) mmol/L Chloride 105 (100-108) mmol/L Carbon Dioxide 31 (21-32) mmol/L Anion Gap 7.4 (5.0-14.0) mmol/L BUN 41 H (7-18) mg/dL Creatinine 2.2 H (0.8-1.3) mg/dL Est Cr Clr Drug Dosing 24.69 mL/min Estimated GFR (MDRD) 29 L (>60) Glucose 41 L* (74-106) mg/dL Calcium 8.2 L (8.5-10.1) mg/dL Med Orders - Current: Current Medications Acetaminophen (Tylenol Extra Strength) 1,000 mg PO TID [facility] Last Admin: 02/02/17 08:32 Dose: 1,000 mg Albuterol (Proventil Neb Soln) 2.5 mg NEB Q4H PRN PRN Reason: Shortness Of Breath/wheezing Allopurinol (Zyloprim) 100 mg PO DAILY [facility] Last Admin: 02/02/17 08:31 Dose: 100 mg Aspirin (Aspirin) 81 mg PO DAILY [facility] Last Admin: 02/02/17 08:31 Dose: 81 mg Carvedilol (Coreg) 25 mg PO BID [facility] Last Admin: 02/02/17 08:33 Dose: 25 mg Famotidine (Pepcid) 20 mg PO BEDTIME [facility] Last Admin: 02/01/17 21:18 Dose: 20 mg Heparin Sodium (Porcine) (Heparin Sodium) 5,000 units SUBCUT BID [facility] Last Admin: 02/02/17 08:33 Dose: 5,000 units Hydromorphone HCl (Dilaudid) 0.5 - 1 mg IVPUSH Q2H PRN PRN Reason: Pain (severe 7-10) Cefazolin Sodium/Dextrose 2 gm (/ Premix) 50 mls @ 100 mls/hr IV Q8H [facility] Insulin Aspart (Novolog) 0 unit SUBCUT QIDACANDBED [facility] PRN Reason: Protocol Last Admin: 02/02/17 11:37 Dose: 4 units Insulin Detemir (Levemir) 20 unit SUBCUT BID [facility] Isosorbide Mononitrate (Imdur) 30 mg PO BID [facility] Last Admin: 02/02/17 08:32 Dose: 30 mg Latanoprost (Xalatan 0.005% Ophth Soln) 0 ml EYEBOTH BEDTIME [facility] Last Admin: 02/01/17 21:18 Dose: 1 drop Lisinopril (Prinivil) 40 mg PO DAILY [facility] Last Admin: 02/02/17 08:32 Dose: 40 mg Ondansetron HCl (Zofran Odt) 4 mg PO Q6H PRN PRN Reason: Nausea able to take PO Ondansetron HCl (Zofran) 4 mg IV Q6H PRN PRN Reason: Nausea/Vomiting Oxycodone HCl (Oxycodone) 5 mg PO Q4H PRN PRN Reason: Pain (moderate 4-6) Last Admin: 02/02/17 05:04 Dose: 5 mg Polyethylene Glycol (Miralax) 17 gm PO DAILY PRN PRN Reason: Constipation Last Admin: 02/02/17 05:04 Dose: 17 gm Tamsulosin HCl (Flomax) 0.4 mg PO DAILY [facility] Last Admin: 02/02/17 08:31 Dose: 0.4 mg Torsemide (Demadex) 40 mg PO BIDDIURETIC [facility] Last Admin: 02/02/17 08:32 Dose: 40 mg Discontinued Medications Meropenem 500 mg/ Sodium (Chloride) 50 mls @ 100 mls/hr IV ONETIME ONE Stop: 01/31/17 13:44 Last Admin: 01/31/17 13:19 Dose: 100 mls/hr Vancomycin HCl 1.75 gm/ Sodium (Chloride) 250 mls @ 150 mls/hr IV Q24H [facility] Last Admin: 01/31/17 14:07 Dose: 150 mls/hr Vancomycin HCl 1.75 gm/ Sodium (Chloride) 250 mls @ 150 mls/hr IV Q24H [facility] Last Admin: 02/01/17 13:58 Dose: 150 mls/hr Meropenem 1 gm/ Sodium (Chloride) 50 mls @ 100 mls/hr IV Q8H [facility] Last Admin: 02/02/17 04:31 Dose: 100 mls/hr Sodium Chloride (Normal Saline) 1,000 mls @ 125 mls/hr IV ASDIRECTED [facility] Last Admin: 02/01/17 09:09 Dose: 125 mls/hr Insulin Detemir (Levemir) 30 unit SUBCUT BID [facility] Last Admin: 02/02/17 08:36 Dose: 30 units - Exam Quality Assessment: Supplemental Oxygen General: Alert, Oriented, Cooperative, No Acute Distress Neck: Supple Lungs: Normal Respiratory Effort Cardiovascular: Regular Rate, Regular Rhythm GI/Abdominal Exam: Soft, No Distention Extremities: Pedal Edema (left leg), Increased Warmth (left medial thigh) Skin: Warm, Dry Psy/Mental Status: Alert, Normal Affect - Problem List & Annotations (1) Cellulitis of leg, left SNOMED Code(s): 143770512 Code(s): L03.116 - CELLULITIS OF LEFT LOWER LIMB Status: Acute Current Visit: Yes (2) Acute kidney injury SNOMED Code(s): 65051442 Code(s): N17.9 - ACUTE KIDNEY FAILURE, UNSPECIFIED Status: Acute Current Visit: Yes (3) Diabetes mellitus, type II, insulin dependent SNOMED Code(s): 365720408 Code(s): E11.9 - TYPE 2 DIABETES MELLITUS WITHOUT COMPLICATIONS; Z79.4 - [employer] (CURRENT) USE OF INSULIN Status: Chronic Current Visit: Yes (4) COPD (chronic obstructive pulmonary disease) SNOMED Code(s): 19748545 Code(s): J44.9 - CHRONIC OBSTRUCTIVE PULMONARY DISEASE, UNSPECIFIED Status : Chronic Current Visit: Yes Qualifiers: COPD type: unspecified COPD Qualified Code(s): J44.9 - Chronic obstructive pulmonary disease, unspecified (5) Diastolic congestive heart failure SNOMED Code(s): 727671258, 139913706 Code(s): I50.30 - UNSPECIFIED DIASTOLIC (CONGESTIVE) HEART FAILURE Status: Chronic Current Visit: Yes Qualifiers: Congestive heart failure chronicity: chronic Qualified Code(s): I50.32 - Chronic diastolic (congestive) heart failure - Problem List Review Problem List Initiated/Reviewed/Updated: Yes - My Orders Last 24 Hours: My Active Orders 02/01/17 14:00 Torsemide [Demadex] 40 mg PO BIDDIURETIC 02/02/17 04:40 GLUCOSE POC LAB TO COLLECT [POC] Stat 02/02/17 12:24 Potassium Chloride [Klor-Con M20] 40 meq PO ONETIME ONE 02/02/17 13:00 ceFAZolin [Ancef] 2 gm Premix Bag 1 bag IV Q8H 02/02/17 16:30 GLUCOSE POC LAB TO COLLECT [POC] QIDACANDBED 02/02/17 21:00 GLUCOSE POC LAB TO COLLECT [POC] QIDACANDBED Insulin Detemir [Levemir] 20 unit SUBCUT BID 02/03/17 05:00 BASIC METABOLIC PANEL,BMP [CHEM] Timed CBC W/O DIFF,HEMOGRAM [HEME] Timed (1) 02/03/17 07:30 GLUCOSE POC LAB TO COLLECT [POC] QIDACANDBED 02/03/17 11:30 GLUCOSE POC LAB TO COLLECT [POC] QIDACANDBED 02/03/17 16:30 GLUCOSE POC LAB TO COLLECT [POC] QIDACANDBED 02/03/17 21:00 GLUCOSE POC LAB TO COLLECT [POC] QIDACANDBED 02/04/17 07:30 GLUCOSE POC LAB TO COLLECT [POC] QIDACANDBED 02/04/17 11:30 GLUCOSE POC LAB TO COLLECT [POC] QIDACANDBED 02/04/17 16:30 GLUCOSE POC LAB TO COLLECT [POC] QIDACANDBED 02/04/17 21:00 GLUCOSE POC LAB TO COLLECT [POC] QIDACANDBED 02/05/17 07:30 GLUCOSE POC LAB TO COLLECT [POC] QIDACANDBED 02/05/17 11:30 GLUCOSE POC LAB TO COLLECT [POC] QIDACANDBED 02/05/17 16:30 GLUCOSE POC LAB TO COLLECT [POC] QIDACANDBED 02/05/17 21:00 GLUCOSE POC LAB TO COLLECT [POC] QIDACANDBED 02/06/17 07:30 GLUCOSE POC LAB TO COLLECT [POC] QIDACANDBED 02/06/17 11:30 GLUCOSE POC LAB TO COLLECT [POC] QIDACANDBED 02/06/17 16:30 GLUCOSE POC LAB TO COLLECT [POC] QIDACANDBED 02/06/17 21:00 GLUCOSE POC LAB TO COLLECT [POC] QIDACANDBED 02/07/17 07:30 GLUCOSE POC LAB TO COLLECT [POC] QIDACANDBED 02/07/17 11:30 GLUCOSE POC LAB TO COLLECT [POC] QIDACANDBED 02/07/17 16:30 GLUCOSE POC LAB TO COLLECT [POC] QIDACANDBED 02/07/17 21:00 GLUCOSE POC LAB TO COLLECT [POC] QIDACANDBED 02/08/17 07:30 GLUCOSE POC LAB TO COLLECT [POC] QIDACANDBED 02/08/17 11:30 GLUCOSE POC LAB TO COLLECT [POC] QIDACANDBED 02/08/17 16:30 GLUCOSE POC LAB TO COLLECT [POC] QIDACANDBED - Plan Plan:: Assessment and plan - Cellulitis and lymphangitis left leg - open wound on the left medial leg probably secondary to poor skin quality of the setting of chronic lymphedema and diabetes. Clinically seems better with less inflammation and redness each day. No positive cultures as of yet. Pain improving. No evidence for abscess based on CT scanning. -Change antibiotics to cefazolin -Follow-up blood cultures -Consult Dr. Farmer for assistance with wound care -Pain control -Heel padding to reduce heel pain -Outpatient lymphedema management Acute kidney injury - kidney function slowly improving. -Saline lock IV -Labs in the morning Diastolic congestive heart failure - appears to be fairly well compensated at this time. No significant edema of the right leg. He is on his baseline supplemental oxygen. Weight is up a few pounds but no respiratory compromise. -Continue medical management Insulin-dependent diabetes mellitus - appetite has been poor, sugar low this morning. Planning to decrease long-acting insulin. -Levemir 20 units twice daily -Sliding-scale insulin COPD, oxygen dependent - patient normally uses 2 L of oxygen at home. Respiratory status currently at baseline. -Supplemental oxygen Maintenance issues - - DVT prophylaxis - heparin - GI prophylaxis - H2 valente - Nutrition - consistent carbohydrates Disposition - anticipate discharge to home with home health care after the hospital stay Lance De La Rosa M.D.
[2017-02-02] MEDS ORDERED: Potassium Chloride 20 MEQ Tab.ER PO ONE (13:00)
[2017-02-02] MEDS: ceFAZolin 2 GM in Premix Bag 1 BAG IV SCH ×2 (13:37→21:01)
[2017-02-02] MEDS: Famotidine 20 MG Tab PO SCH (20:13)
[2017-02-02] MEDS: Latanoprost 0.005% Ophth Soln 2.5 ML Bottle EYEBOTH SCH (20:13)
[2017-02-02] MEDS: Albuterol 0.083% 2.5 MG/3 ML Neb Soln NEB PRN (20:28)
[2017-02-03] MEDS: ceFAZolin 2 GM in Premix Bag 1 BAG IV SCH ×3 (05:20→22:27)
[2017-02-03] MEDS: Torsemide 20 MG Tab PO SCH ×2 (07:26→13:44)
[2017-02-03] MEDS: Insulin Aspart 100 Units/ML 3 ML Pen SUBCUT SCH ×4 (08:59→21:06)
[2017-02-03] MEDS: Acetaminophen 500 MG Tab PO SCH ×3 (09:24→20:41)
[2017-02-03] MEDS: Allopurinol 100 MG Tab PO SCH (09:24)
[2017-02-03] MEDS: Isosorbide Mononitrate 30 MG Tab.ER PO SCH ×2 (09:25→20:41)
[2017-02-03] MEDS: Aspirin 81 MG Tab.Chew PO SCH (09:26)
[2017-02-03] MEDS: Lisinopril 20 MG Tab PO SCH (09:27)
[2017-02-03] MEDS: Carvedilol 25 MG Tab PO SCH (09:28)
[2017-02-03] MEDS: Tamsulosin 0.4 MG Cap.ER PO SCH (09:28)
[2017-02-03] MEDS: Insulin Detemir 100 Units/ML 3 ML Pen SUBCUT SCH ×2 (09:29→21:07)
[2017-02-03] MEDS: Heparin Sodium 5,000 Units/ML Vial SUBCUT SCH ×2 (09:29→20:41)
--- NOTE | 2017-02-03 14:16 | PCM.PN ---
- General Info Date of Service: 02/03/17 Functional Status: Reports: Pain Controlled, Tolerating Diet - Review of Systems General: Reports: Weakness. Denies: Fever Pulmonary: Denies: Shortness of Breath Musculoskeletal: Reports: Leg Pain Systems Review Comment:: No acute events overnight. Vital signs have been stable. He did have a low blood sugar again this morning despite decreased dose of Levemir last night. The left leg pain has been improving. Still a fair amount of swelling but this seems a little bit better. Cultures remain negative. Leg continues to improve despite the change in antibiotics yesterday. Strength seems to be slowly improving but he does require a fair amount of assistance yet. Kidney function stable. - Patient Data Vitals - Most Recent: Last Vital Signs Temp 37.7 C 02/03/17 11:32 Pulse 65 02/03/17 11:32 Resp 20 02/03/17 11:32 BP 194/99 H 02/03/17 11:32 Pulse Ox 100 02/03/17 11:32 Weight - Most Recent: 121.79 kg I&O - Last 24 Hours: Intake & Output 02/02/17 02/03/17 02/03/17 22:59 06:59 14:59 Intake Total 240 410 360 Output Total 725 150 Balance -485 260 360 Lab Results Last 24 Hours: Laboratory Results - last 24 hr 02/03/17 02/03/17 Range/Units 05:16 05:16 WBC 10.6 (4.5-11.0) K/uL RBC 3.74 L (4.30-5.90) M/uL Hgb 11.4 L (12.0-15.0) g/dL Hct 36.8 L (40.0-54.0) % MCV 98 (80-98) fL MCH 31 (27-31) pg MCHC 31 L (32-36) % Plt Count 161 (150-400) K/uL Sodium 142 (140-148) mmol/L Potassium 3.9 (3.6-5.2) mmol/L Chloride 106 (100-108) mmol/L Carbon Dioxide 32 (21-32) mmol/L Anion Gap 4.3 L (5.0-14.0) mmol/L BUN 38 H (7-18) mg/dL Creatinine 2.2 H (0.8-1.3) mg/dL Est Cr Clr Drug Dosing 24.69 mL/min Estimated GFR (MDRD) 29 L (>60) Glucose 49 L* (74-106) mg/dL Calcium 8.3 L (8.5-10.1) mg/dL Med Orders - Current: Current Medications Acetaminophen (Tylenol Extra Strength) 1,000 mg PO TID [facility] Last Admin: 02/03/17 13:44 Dose: 1,000 mg Albuterol (Proventil Neb Soln) 2.5 mg NEB Q4H PRN PRN Reason: Shortness Of Breath/wheezing Last Admin: 02/02/17 20:28 Dose: 2.5 mg Allopurinol (Zyloprim) 100 mg PO DAILY [facility] Last Admin: 02/03/17 09:24 Dose: 100 mg Aspirin (Aspirin) 81 mg PO DAILY [facility] Last Admin: 02/03/17 09:26 Dose: 81 mg Carvedilol (Coreg) 25 mg PO BID [facility] Last Admin: 02/03/17 09:28 Dose: 25 mg Famotidine (Pepcid) 20 mg PO BEDTIME [facility] Last Admin: 02/02/17 20:13 Dose: 20 mg Heparin Sodium (Porcine) (Heparin Sodium) 5,000 units SUBCUT BID [facility] Last Admin: 02/03/17 09:29 Dose: 5,000 units Hydromorphone HCl (Dilaudid) 0.5 - 1 mg IVPUSH Q2H PRN PRN Reason: Pain (severe 7-10) Cefazolin Sodium/Dextrose 2 gm (/ Premix) 50 mls @ 100 mls/hr IV Q8H [facility] Last Admin: 02/03/17 13:45 Dose: 100 mls/hr Insulin Aspart (Novolog) 0 unit SUBCUT QIDACANDBED [facility] PRN Reason: Protocol Last Admin: 02/03/17 11:51 Dose: 6 units Insulin Detemir (Levemir) 20 unit SUBCUT BID [facility] Last Admin: 02/03/17 09:29 Dose: 20 units Isosorbide Mononitrate (Imdur) 30 mg PO BID [facility] Last Admin: 02/03/17 09:25 Dose: 30 mg Latanoprost (Xalatan 0.005% Ophth Soln) 0 ml EYEBOTH BEDTIME [facility] Last Admin: 02/02/17 20:13 Dose: 1 drop Lisinopril (Prinivil) 40 mg PO DAILY [facility] Last Admin: 02/03/17 09:27 Dose: 40 mg Ondansetron HCl (Zofran Odt) 4 mg PO Q6H PRN PRN Reason: Nausea able to take PO Ondansetron HCl (Zofran) 4 mg IV Q6H PRN PRN Reason: Nausea/Vomiting Oxycodone HCl (Oxycodone) 5 mg PO Q4H PRN PRN Reason: Pain (moderate 4-6) Last Admin: 02/02/17 05:04 Dose: 5 mg Polyethylene Glycol (Miralax) 17 gm PO DAILY PRN PRN Reason: Constipation Last Admin: 02/02/17 05:04 Dose: 17 gm Tamsulosin HCl (Flomax) 0.4 mg PO DAILY [facility] Last Admin: 02/03/17 09:28 Dose: 0.4 mg Torsemide (Demadex) 40 mg PO BIDDIURETIC [facility] Last Admin: 02/03/17 13:44 Dose: 40 mg Discontinued Medications Meropenem 500 mg/ Sodium (Chloride) 50 mls @ 100 mls/hr IV ONETIME ONE Stop: 01/31/17 13:44 Last Admin: 01/31/17 13:19 Dose: 100 mls/hr Vancomycin HCl 1.75 gm/ Sodium (Chloride) 250 mls @ 150 mls/hr IV Q24H [facility] Last Admin: 01/31/17 14:07 Dose: 150 mls/hr Vancomycin HCl 1.75 gm/ Sodium (Chloride) 250 mls @ 150 mls/hr IV Q24H [facility] Last Admin: 02/01/17 13:58 Dose: 150 mls/hr Meropenem 1 gm/ Sodium (Chloride) 50 mls @ 100 mls/hr IV Q8H [facility] Last Admin: 02/02/17 13:01 Dose: Not Given Sodium Chloride (Normal Saline) 1,000 mls @ 125 mls/hr IV ASDIRECTED [facility] Last Admin: 02/01/17 09:09 Dose: 125 mls/hr Insulin Detemir (Levemir) 30 unit SUBCUT BID [facility] Last Admin: 02/02/17 08:36 Dose: 30 units Potassium Chloride (Klor-Con M20) 40 meq PO ONETIME ONE Stop: 02/02/17 13:01 Last Admin: 02/02/17 13:38 Dose: 40 meq - Exam Quality Assessment: Supplemental Oxygen General: Alert, Oriented, Cooperative, No Acute Distress Neck: Supple Lungs: Normal Respiratory Effort Cardiovascular: Regular Rate, Regular Rhythm GI/Abdominal Exam: Soft, No Distention Extremities: Pedal Edema (Pitting edema left leg and mild edema on the right), Increased Warmth (Left medial thigh), Other (Tender over left medial thigh) Skin: Warm, Dry Psy/Mental Status: Alert, Normal Affect - Problem List & Annotations (1) Cellulitis of leg, left SNOMED Code(s): 370069728 Code(s): L03.116 - CELLULITIS OF LEFT LOWER LIMB Status: Acute Current Visit: Yes (2) Acute kidney injury SNOMED Code(s): 09804132 Code(s): N17.9 - ACUTE KIDNEY FAILURE, UNSPECIFIED Status: Acute Current Visit: Yes (3) Diabetes mellitus, type II, insulin dependent SNOMED Code(s): 434000093 Code(s): E11.9 - TYPE 2 DIABETES MELLITUS WITHOUT COMPLICATIONS; Z79.4 - [facility] (CURRENT) USE OF INSULIN Status: Chronic Current Visit: Yes (4) COPD (chronic obstructive pulmonary disease) SNOMED Code(s): 16080209 Code(s): J44.9 - CHRONIC OBSTRUCTIVE PULMONARY DISEASE, UNSPECIFIED Status : Chronic Current Visit: Yes Qualifiers: COPD type: unspecified COPD Qualified Code(s): J44.9 - Chronic obstructive pulmonary disease, unspecified (5) Diastolic congestive heart failure SNOMED Code(s): 452585315, 796382939 Code(s): I50.30 - UNSPECIFIED DIASTOLIC (CONGESTIVE) HEART FAILURE Status: Chronic Current Visit: Yes Qualifiers: Congestive heart failure chronicity: chronic Qualified Code(s): I50.32 - Chronic diastolic (congestive) heart failure - Problem List Review Problem List Initiated/Reviewed/Updated: Yes - My Orders Last 24 Hours: My Active Orders 02/02/17 14:00 ceFAZolin [Ancef] 2 gm Premix Bag 1 bag IV Q8H 02/02/17 21:00 Insulin Detemir [Levemir] 20 unit SUBCUT BID 02/03/17 16:30 GLUCOSE POC LAB TO COLLECT [POC] QIDACANDBED 02/03/17 21:00 GLUCOSE POC LAB TO COLLECT [POC] QIDACANDBED 02/04/17 05:00 BASIC METABOLIC PANEL,BMP [CHEM] Timed CBC W/O DIFF,HEMOGRAM [HEME] Timed (1) 02/04/17 07:30 GLUCOSE POC LAB TO COLLECT [POC] QIDACANDBED 02/04/17 11:30 GLUCOSE POC LAB TO COLLECT [POC] QIDACANDBED 02/04/17 16:30 GLUCOSE POC LAB TO COLLECT [POC] QIDACANDBED 02/04/17 21:00 GLUCOSE POC LAB TO COLLECT [POC] QIDACANDBED 02/05/17 07:30 GLUCOSE POC LAB TO COLLECT [POC] QIDACANDBED 02/05/17 11:30 GLUCOSE POC LAB TO COLLECT [POC] QIDACANDBED 02/05/17 16:30 GLUCOSE POC LAB TO COLLECT [POC] QIDACANDBED 02/05/17 21:00 GLUCOSE POC LAB TO COLLECT [POC] QIDACANDBED 02/06/17 07:30 GLUCOSE POC LAB TO COLLECT [POC] QIDACANDBED 02/06/17 11:30 GLUCOSE POC LAB TO COLLECT [POC] QIDACANDBED 02/06/17 16:30 GLUCOSE POC LAB TO COLLECT [POC] QIDACANDBED 02/06/17 21:00 GLUCOSE POC LAB TO COLLECT [POC] QIDACANDBED 02/07/17 07:30 GLUCOSE POC LAB TO COLLECT [POC] QIDACANDBED 02/07/17 11:30 GLUCOSE POC LAB TO COLLECT [POC] QIDACANDBED 02/07/17 16:30 GLUCOSE POC LAB TO COLLECT [POC] QIDACANDBED 02/07/17 21:00 GLUCOSE POC LAB TO COLLECT [POC] QIDACANDBED 02/08/17 07:30 GLUCOSE POC LAB TO COLLECT [POC] QIDACANDBED 02/08/17 11:30 GLUCOSE POC LAB TO COLLECT [POC] QIDACANDBED 02/08/17 16:30 GLUCOSE POC LAB TO COLLECT [POC] QIDACANDBED - Plan Plan:: Assessment and plan - Cellulitis and lymphangitis left leg - open wound on the left medial leg probably secondary to poor skin quality of the setting of chronic lymphedema and diabetes. Ongoing improvement and leg looks even better today. Tolerating cefazolin well with transition made yesterday. White blood cell count improving. -Continue cefazolin, planning to transition to cephalexin at the time of discharge -Follow-up blood cultures -Outpatient follow-up with Dr. Farmer for additional wound care -Pain control -Heel padding to reduce heel pain -Outpatient lymphedema management Acute kidney injury - kidney function stable today, hopefully will improve after antibiotic adjustments. -Saline lock IV -Labs in the morning Diastolic congestive heart failure - appears to be fairly well compensated at this time. No significant edema of the right leg. He is on his baseline supplemental oxygen. -Continue medical management Insulin-dependent diabetes mellitus - appetite has been poor, sugar low again this morning. Appetite seems to be picking up today. -Levemir 20 units twice daily -Sliding-scale insulin COPD, oxygen dependent - patient normally uses 2 L of oxygen at home. Respiratory status currently at baseline. -Supplemental oxygen Maintenance issues - - DVT prophylaxis - heparin - GI prophylaxis - H2 valente - Nutrition - consistent carbohydrates Disposition - anticipate discharge to home with home health care after the hospital stay, hopefully in the next day or 2 Lance De La Rosa M.D.
[2017-02-03] MEDS: Famotidine 20 MG Tab PO SCH (20:42)
[2017-02-03] MEDS: Latanoprost 0.005% Ophth Soln 2.5 ML Bottle EYEBOTH SCH (20:43)
[2017-02-04] MEDS: Albuterol 0.083% 2.5 MG/3 ML Neb Soln NEB PRN (00:05)
[2017-02-04] MEDS: ceFAZolin 2 GM in Premix Bag 1 BAG IV SCH ×4 (05:39→22:28)
[2017-02-04] MEDS: Aspirin 81 MG Tab.Chew PO SCH (08:08)
[2017-02-04] MEDS: Torsemide 20 MG Tab PO SCH ×2 (08:08→14:06)
[2017-02-04] MEDS: Isosorbide Mononitrate 30 MG Tab.ER PO SCH ×3 (08:09→22:27)
[2017-02-04] MEDS: Heparin Sodium 5,000 Units/ML Vial SUBCUT SCH ×3 (08:09→22:27)
[2017-02-04] MEDS: Tamsulosin 0.4 MG Cap.ER PO SCH (08:09)
[2017-02-04] MEDS: Insulin Detemir 100 Units/ML 3 ML Pen SUBCUT SCH ×3 (08:10→22:28)
[2017-02-04] MEDS: Insulin Aspart 100 Units/ML 3 ML Pen SUBCUT SCH ×5 (08:10→22:26)
[2017-02-04] MEDS: Lisinopril 20 MG Tab PO SCH (08:11)
[2017-02-04] MEDS: Allopurinol 100 MG Tab PO SCH (08:11)
[2017-02-04] MEDS: Acetaminophen 500 MG Tab PO SCH ×4 (08:11→22:28)
[2017-02-04] MEDS: Carvedilol 25 MG Tab PO SCH ×3 (11:46→22:28)
--- NOTE | 2017-02-04 14:00 | PCM.PN ---
- General Info Date of Service: 02/04/17 Functional Status: Reports: Pain Controlled, Tolerating Diet, Ambulating - Review of Systems General: Reports: Weakness. Denies: Fever, Chills Pulmonary: Reports: No Symptoms Cardiovascular: Reports: No Symptoms Gastrointestinal: Reports: No Symptoms Systems Review Comment:: Mr. Vargas is remained fairly stable over the past 24 hours, vital signs have been good and he is been afebrile. Cellulitis involving his left leg is significantly improved on current antibiotic therapy. Pain control is been good and he is begun working on transfers and ambulation. There remains a large amount of edema in the left leg but it's improved from admission. - Patient Data Vitals - Most Recent: Last Vital Signs Temp 98.9 F 02/04/17 11:55 Pulse 65 02/04/17 11:46 Resp 16 02/04/17 11:55 BP 158/78 H 02/04/17 11:55 Pulse Ox 97 02/04/17 11:55 Weight - Most Recent: 266 lb 11.2 oz I&O - Last 24 Hours: Intake & Output 02/03/17 02/04/17 02/04/17 22:59 06:59 14:59 Intake Total 290 790 580 Output Total 325 Balance 290 790 255 Lab Results Last 24 Hours: Laboratory Results - last 24 hr 02/04/17 02/04/17 Range/Units 04:55 04:55 WBC 7.5 (4.5-11.0) K/uL RBC 3.79 L (4.30-5.90) M/uL Hgb 11.7 L (12.0-15.0) g/dL Hct 37.2 L (40.0-54.0) % MCV 98 (80-98) fL MCH 31 (27-31) pg MCHC 32 (32-36) % Plt Count 168 (150-400) K/uL Sodium 142 (140-148) mmol/L Potassium 4.1 (3.6-5.2) mmol/L Chloride 104 (100-108) mmol/L Carbon Dioxide 34 H (21-32) mmol/L Anion Gap 8.1 (5.0-14.0) mmol/L BUN 39 H (7-18) mg/dL Creatinine 2.1 H (0.8-1.3) mg/dL Est Cr Clr Drug Dosing 25.87 mL/min Estimated GFR (MDRD) 31 L (>60) Glucose 156 H (74-106) mg/dL Calcium 8.7 (8.5-10.1) mg/dL Med Orders - Current: Current Medications Acetaminophen (Tylenol Extra Strength) 1,000 mg PO TID [facility] Last Admin: 02/04/17 08:11 Dose: 1,000 mg Albuterol (Proventil Neb Soln) 2.5 mg NEB Q4H PRN PRN Reason: Shortness Of Breath/wheezing Last Admin: 02/04/17 00:05 Dose: 2.5 mg Allopurinol (Zyloprim) 100 mg PO DAILY [facility] Last Admin: 02/04/17 08:11 Dose: 100 mg Aspirin (Aspirin) 81 mg PO DAILY [facility] Last Admin: 02/04/17 08:08 Dose: 81 mg Carvedilol (Coreg) 25 mg PO BID [facility] Last Admin: 02/04/17 11:46 Dose: 25 mg Famotidine (Pepcid) 20 mg PO BEDTIME [facility] Last Admin: 02/03/17 20:42 Dose: 20 mg Heparin Sodium (Porcine) (Heparin Sodium) 5,000 units SUBCUT BID [facility] Last Admin: 02/04/17 08:09 Dose: 5,000 units Hydromorphone HCl (Dilaudid) 0.5 - 1 mg IVPUSH Q2H PRN PRN Reason: Pain (severe 7-10) Cefazolin Sodium/Dextrose 2 gm (/ Premix) 50 mls @ 100 mls/hr IV Q8H [facility] Last Admin: 02/04/17 05:39 Dose: 100 mls/hr Insulin Aspart (Novolog) 0 unit SUBCUT QIDACANDBED [facility] PRN Reason: Protocol Last Admin: 02/04/17 11:46 Dose: 6 units Insulin Detemir (Levemir) 20 unit SUBCUT BID [facility] Last Admin: 02/04/17 08:10 Dose: 20 units Isosorbide Mononitrate (Imdur) 30 mg PO BID [facility] Last Admin: 02/04/17 08:09 Dose: 30 mg Latanoprost (Xalatan 0.005% Ophth Soln) 0 ml EYEBOTH BEDTIME [facility] Last Admin: 02/03/17 20:43 Dose: 1 drop Lisinopril (Prinivil) 40 mg PO DAILY [facility] Last Admin: 02/04/17 08:11 Dose: 40 mg Ondansetron HCl (Zofran Odt) 4 mg PO Q6H PRN PRN Reason: Nausea able to take PO Ondansetron HCl (Zofran) 4 mg IV Q6H PRN PRN Reason: Nausea/Vomiting Oxycodone HCl (Oxycodone) 5 mg PO Q4H PRN PRN Reason: Pain (moderate 4-6) Last Admin: 02/02/17 05:04 Dose: 5 mg Polyethylene Glycol (Miralax) 17 gm PO DAILY PRN PRN Reason: Constipation Last Admin: 02/02/17 05:04 Dose: 17 gm Tamsulosin HCl (Flomax) 0.4 mg PO DAILY [facility] Last Admin: 02/04/17 08:09 Dose: 0.4 mg Torsemide (Demadex) 60 mg PO BIDDIURETIC [facility] Discontinued Medications Meropenem 500 mg/ Sodium (Chloride) 50 mls @ 100 mls/hr IV ONETIME ONE Stop: 01/31/17 13:44 Last Admin: 01/31/17 13:19 Dose: 100 mls/hr Vancomycin HCl 1.75 gm/ Sodium (Chloride) 250 mls @ 150 mls/hr IV Q24H [facility] Last Admin: 01/31/17 14:07 Dose: 150 mls/hr Vancomycin HCl 1.75 gm/ Sodium (Chloride) 250 mls @ 150 mls/hr IV Q24H [facility] Last Admin: 02/01/17 13:58 Dose: 150 mls/hr Meropenem 1 gm/ Sodium (Chloride) 50 mls @ 100 mls/hr IV Q8H [facility] Last Admin: 02/02/17 13:01 Dose: Not Given Sodium Chloride (Normal Saline) 1,000 mls @ 125 mls/hr IV ASDIRECTED [facility] Last Admin: 02/01/17 09:09 Dose: 125 mls/hr Insulin Detemir (Levemir) 30 unit SUBCUT BID [facility] Last Admin: 02/02/17 08:36 Dose: 30 units Potassium Chloride (Klor-Con M20) 40 meq PO ONETIME ONE Stop: 02/02/17 13:01 Last Admin: 02/02/17 13:38 Dose: 40 meq Torsemide (Demadex) 40 mg PO BIDDIURETIC [facility] Last Admin: 02/04/17 08:08 Dose: 40 mg - Exam Quality Assessment: Supplemental Oxygen, DVT Prophylaxis General: Alert, Oriented, Cooperative Lungs: Clear to Auscultation, Normal Respiratory Effort Cardiovascular: Regular Rate, Regular Rhythm, No Murmurs GI/Abdominal Exam: Normal Bowel Sounds, Soft, Non-Tender, No Distention Extremities: Pedal Edema Skin: Warm, Dry, Intact - Problem List Review Problem List Initiated/Reviewed/Updated: Yes - My Orders Last 24 Hours: My Active Orders 02/04/17 13:07 Torsemide [Demadex] 60 mg PO BIDDIURETIC 02/05/17 05:00 BASIC METABOLIC PANEL,BMP [CHEM] Timed - Plan Plan:: Assessment and plan - Cellulitis and lymphangitis left leg - open wound on the left medial leg probably secondary to poor skin quality of the setting of chronic lymphedema and diabetes. Ongoing improvement and leg looks even better today. Tolerating cefazolin well with transition made yesterday. White blood cell count normalized -Continue cefazolin, planning to transition to cephalexin at the time of discharge -Follow-up blood cultures -Outpatient follow-up with Dr. Farmer for additional wound care -Pain control -Heel padding to reduce heel pain -Outpatient lymphedema management Acute kidney injury - renal function remained stable with current diuresis -Saline lock IV -Labs in the morning Diastolic congestive heart failure - appears to be fairly well compensated at this time. No significant edema of the right leg. He is on his baseline supplemental oxygen. Continues to have severe edema involving the left lower extremity -Continue medical management Insulin-dependent diabetes mellitus - appetite has been poor, sugar low again this morning. Appetite seems to be picking up today. -Levemir 20 units twice daily -Sliding-scale insulin COPD, oxygen dependent - patient normally uses 2 L of oxygen at home. Respiratory status currently at baseline. -Supplemental oxygen Maintenance issues - - DVT prophylaxis - heparin - GI prophylaxis - H2 valente - Nutrition - consistent carbohydrates Disposition - anticipate discharge to home with home health care after the hospital stay, hopefully in the next day or 2
[2017-02-04] MEDS: Famotidine 20 MG Tab PO SCH ×2 (22:15→22:27)
[2017-02-04] MEDS: Latanoprost 0.005% Ophth Soln 2.5 ML Bottle EYEBOTH SCH ×2 (22:15→22:27)
[2017-02-05] MEDS ORDERED: Dimethicone 20%/Zinc Oxide 25% 56 GM Spray Bottle TOP PRN (03:20)
[2017-02-05] MEDS: ceFAZolin 2 GM in Premix Bag 1 BAG IV SCH ×2 (05:19→13:57)
[2017-02-05] MEDS: Torsemide 20 MG Tab PO SCH ×2 (07:14→13:58)
[2017-02-05] MEDS: Insulin Aspart 100 Units/ML 3 ML Pen SUBCUT SCH ×4 (07:42→21:25)
[2017-02-05] MEDS: Aspirin 81 MG Tab.Chew PO SCH (08:13)
[2017-02-05] MEDS: Carvedilol 25 MG Tab PO SCH ×2 (08:13→20:50)
[2017-02-05] MEDS: Acetaminophen 500 MG Tab PO SCH ×3 (08:14→20:49)
[2017-02-05] MEDS: Tamsulosin 0.4 MG Cap.ER PO SCH (08:14)
[2017-02-05] MEDS: Isosorbide Mononitrate 30 MG Tab.ER PO SCH ×2 (08:14→20:50)
[2017-02-05] MEDS: Lisinopril 20 MG Tab PO SCH (08:14)
[2017-02-05] MEDS: Heparin Sodium 5,000 Units/ML Vial SUBCUT SCH ×2 (08:14→20:49)
[2017-02-05] MEDS: Allopurinol 100 MG Tab PO SCH (08:15)
[2017-02-05] MEDS: Insulin Detemir 100 Units/ML 3 ML Pen SUBCUT SCH ×2 (08:15→21:26)
--- NOTE | 2017-02-05 14:58 | PCM.PN ---
- General Info Date of Service: 02/05/17 Functional Status: Reports: Pain Controlled, Tolerating Diet - Review of Systems General: Reports: Weakness. Denies: Fever, Chills Pulmonary: Reports: No Symptoms Cardiovascular: Reports: Edema. Denies: Chest Pain, Palpitations, Dyspnea on Exertion, Orthopnea Gastrointestinal: Reports: No Symptoms Systems Review Comment:: Mr. Vargas has done well over the past 24 hours, slowly seems to be regaining strength with somewhat less peripheral edema. Vital signs have been stable and he has remained afebrile - Patient Data Vitals - Most Recent: Last Vital Signs Temp 98.5 F 02/05/17 14:24 Pulse 58 L 02/05/17 14:24 Resp 18 02/05/17 14:24 BP 170/68 H 02/05/17 14:24 Pulse Ox 99 02/05/17 14:24 Weight - Most Recent: 268 lb 6.4 oz I&O - Last 24 Hours: Intake & Output 02/04/17 02/05/17 02/05/17 22:59 06:59 14:59 Intake Total 400 1150 800 Output Total 1700 1000 1150 Balance -1300 150 -350 Lab Results Last 24 Hours: Laboratory Results - last 24 hr 02/05/17 Range/Units 04:00 Sodium 141 (140-148) mmol/L Potassium 4.1 (3.6-5.2) mmol/L Chloride 104 (100-108) mmol/L Carbon Dioxide 32 (21-32) mmol/L Anion Gap 4.9 L (5.0-14.0) mmol/L BUN 43 H (7-18) mg/dL Creatinine 2.1 H (0.8-1.3) mg/dL Est Cr Clr Drug Dosing 25.87 mL/min Estimated GFR (MDRD) 31 L (>60) Glucose 137 H (74-106) mg/dL Calcium 8.6 (8.5-10.1) mg/dL Med Orders - Current: Current Medications Acetaminophen (Tylenol Extra Strength) 1,000 mg PO TID [facility] Last Admin: 02/05/17 13:58 Dose: 1,000 mg Albuterol (Proventil Neb Soln) 2.5 mg NEB Q4H PRN PRN Reason: Shortness Of Breath/wheezing Last Admin: 02/04/17 00:05 Dose: 2.5 mg Allopurinol (Zyloprim) 100 mg PO DAILY [facility] Last Admin: 02/05/17 08:15 Dose: 100 mg Aspirin (Aspirin) 81 mg PO DAILY [facility] Last Admin: 02/05/17 08:13 Dose: 81 mg Carvedilol (Coreg) 25 mg PO BID [facility] Last Admin: 02/05/17 08:13 Dose: 25 mg Cephalexin (Keflex) 500 mg PO Q8H [facility] Dimethicone/Zinc Oxide (Rash Relief-Zinc Oxide Dexter) 1 gm TOP ASDIRECTED PRN PRN Reason: Rash Last Admin: 02/05/17 05:18 Dose: 1 applic Famotidine (Pepcid) 20 mg PO BEDTIME [facility] Last Admin: 02/04/17 22:27 Dose: 20 mg Heparin Sodium (Porcine) (Heparin Sodium) 5,000 units SUBCUT BID [facility] Last Admin: 02/05/17 08:14 Dose: 5,000 units Hydromorphone HCl (Dilaudid) 0.5 - 1 mg IVPUSH Q2H PRN PRN Reason: Pain (severe 7-10) Insulin Aspart (Novolog) 0 unit SUBCUT QIDACANDBED [facility] PRN Reason: Protocol Last Admin: 02/05/17 12:25 Dose: 6 units Insulin Detemir (Levemir) 20 unit SUBCUT BID [facility] Last Admin: 02/05/17 08:15 Dose: 20 units Isosorbide Mononitrate (Imdur) 30 mg PO BID [facility] Last Admin: 02/05/17 08:14 Dose: 30 mg Latanoprost (Xalatan 0.005% Ophth Soln) 0 ml EYEBOTH BEDTIME [facility] Last Admin: 02/04/17 22:27 Dose: 1 drop Lisinopril (Prinivil) 40 mg PO DAILY [facility] Last Admin: 02/05/17 08:14 Dose: 40 mg Ondansetron HCl (Zofran Odt) 4 mg PO Q6H PRN PRN Reason: Nausea able to take PO Ondansetron HCl (Zofran) 4 mg IV Q6H PRN PRN Reason: Nausea/Vomiting Oxycodone HCl (Oxycodone) 5 mg PO Q4H PRN PRN Reason: Pain (moderate 4-6) Last Admin: 02/02/17 05:04 Dose: 5 mg Polyethylene Glycol (Miralax) 17 gm PO DAILY PRN PRN Reason: Constipation Last Admin: 02/02/17 05:04 Dose: 17 gm Tamsulosin HCl (Flomax) 0.4 mg PO DAILY [facility] Last Admin: 02/05/17 08:14 Dose: 0.4 mg Torsemide (Demadex) 60 mg PO BIDDIURETIC [facility] Last Admin: 02/05/17 13:58 Dose: 60 mg Discontinued Medications Meropenem 500 mg/ Sodium (Chloride) 50 mls @ 100 mls/hr IV ONETIME ONE Stop: 01/31/17 13:44 Last Admin: 01/31/17 13:19 Dose: 100 mls/hr Vancomycin HCl 1.75 gm/ Sodium (Chloride) 250 mls @ 150 mls/hr IV Q24H [facility] Last Admin: 01/31/17 14:07 Dose: 150 mls/hr Vancomycin HCl 1.75 gm/ Sodium (Chloride) 250 mls @ 150 mls/hr IV Q24H [facility] Last Admin: 02/01/17 13:58 Dose: 150 mls/hr Meropenem 1 gm/ Sodium (Chloride) 50 mls @ 100 mls/hr IV Q8H [facility] Last Admin: 02/02/17 13:01 Dose: Not Given Sodium Chloride (Normal Saline) 1,000 mls @ 125 mls/hr IV ASDIRECTED [facility] Last Admin: 02/01/17 09:09 Dose: 125 mls/hr Cefazolin Sodium/Dextrose 2 gm (/ Premix) 50 mls @ 100 mls/hr IV Q8H [facility] Stop: 02/05/17 14:01 Last Admin: 02/05/17 13:57 Dose: 100 mls/hr Cefazolin Sodium 2 gm/ Sodium (Chloride) 50 mls @ 100 mls/hr IV Q8H [facility] Insulin Detemir (Levemir) 30 unit SUBCUT BID [facility] Last Admin: 02/02/17 08:36 Dose: 30 units Potassium Chloride (Klor-Con M20) 40 meq PO ONETIME ONE Stop: 02/02/17 13:01 Last Admin: 02/02/17 13:38 Dose: 40 meq Torsemide (Demadex) 40 mg PO BIDDIURETIC [facility] Last Admin: 02/04/17 08:08 Dose: 40 mg - Exam Quality Assessment: Supplemental Oxygen, DVT Prophylaxis General: Alert, Oriented, Cooperative, No Acute Distress Lungs: Clear to Auscultation, Normal Respiratory Effort Cardiovascular: Regular Rate, Regular Rhythm, No Murmurs GI/Abdominal Exam: Normal Bowel Sounds, Soft, Non-Tender, No Distention Extremities: Pedal Edema - Problem List Review Problem List Initiated/Reviewed/Updated: Yes - My Orders Last 24 Hours: My Active Orders 02/04/17 14:01 Consult to Physical Therapy [PT Evaluation and Treatment] [CONS] Routine 02/05/17 03:20 Dimethicone/Zinc Oxide [Rash Relief-Zinc Oxide Dexter] 1 gm TOP ASDIRECTED PRN 02/05/17 15:00 Cephalexin [Keflex] 500 mg PO Q8H - Plan Plan:: Assessment and plan - Cellulitis and lymphangitis left leg - open wound on the left medial leg probably secondary to poor skin quality of the setting of chronic lymphedema and diabetes. -Discontinue Ancef -Cephalexin 500 mg by mouth every 8 hours -Follow-up blood cultures -Outpatient follow-up with Dr. Farmer for additional wound care -Pain control -Heel padding to reduce heel pain -Outpatient lymphedema management Acute kidney injury - renal function remained stable with current diuresis -Saline lock IV -Labs in the morning Diastolic congestive heart failure - appears to be fairly well compensated at this time. No significant edema of the right leg. He is on his baseline supplemental oxygen. Continues to have severe edema involving the left lower extremity -Continue medical management Insulin-dependent diabetes mellitus - appetite has been poor, sugar low again this morning. Appetite seems to be picking up today. -Levemir 20 units twice daily -Sliding-scale insulin COPD, oxygen dependent - patient normally uses 2 L of oxygen at home. Respiratory status currently at baseline. -Supplemental oxygen Maintenance issues - - DVT prophylaxis - heparin - GI prophylaxis - H2 valente - Nutrition - consistent carbohydrates Disposition - anticipate discharge to home with home health care after the hospital stay, hopefully in the next day or 2
[2017-02-05] MEDS: Latanoprost 0.005% Ophth Soln 2.5 ML Bottle EYEBOTH SCH (20:49)
[2017-02-05] MEDS: Famotidine 20 MG Tab PO SCH (20:49)
[2017-02-05] MEDS: Cephalexin 250 MG Cap PO SCH (21:00)
[2017-02-05] MEDS ORDERED: ceFAZolin 2 GM in Sodium Chloride 0.9% 50 ML IV SCH (22:00)
[2017-02-06] MEDS: Cephalexin 250 MG Cap PO SCH (06:26)
[2017-02-06] MEDS: Insulin Aspart 100 Units/ML 3 ML Pen SUBCUT SCH ×2 (07:27→12:52)
[2017-02-06] MEDS: Torsemide 20 MG Tab PO SCH (08:49)
[2017-02-06] MEDS: Heparin Sodium 5,000 Units/ML Vial SUBCUT SCH (08:50)
[2017-02-06] MEDS: Lisinopril 20 MG Tab PO SCH (08:50)
[2017-02-06] MEDS: Carvedilol 25 MG Tab PO SCH (08:51)
[2017-02-06] MEDS: Isosorbide Mononitrate 30 MG Tab.ER PO SCH (08:51)
[2017-02-06] MEDS: Acetaminophen 500 MG Tab PO SCH (08:51)
[2017-02-06] MEDS: Tamsulosin 0.4 MG Cap.ER PO SCH (08:51)
[2017-02-06] MEDS: Allopurinol 100 MG Tab PO SCH (08:52)
[2017-02-06] MEDS: Aspirin 81 MG Tab.Chew PO SCH (08:52)
[2017-02-06] MEDS: Insulin Detemir 100 Units/ML 3 ML Pen SUBCUT SCH (08:53)
[2017-02-06 11:09] VITALS: BP 193/79
--- NOTE | 2017-02-06 11:56 | PCM.DCSUM1 ---
Discharge Summary - Hospital Course Brief History: Mr. Vargas is a 81-year-old gentleman who was admitted through the emergency department with sepsis secondary to cellulitis of the left leg. - Discharge Data Discharge Date: 02/06/17 Discharge Disposition: Home, Self-Care 01 Condition: Fair - Discharge Diagnosis/Problem(s) (1) Lymphangitis SNOMED Code(s): 6347826 ICD Code: I89.1 - LYMPHANGITIS Status: Acute Current Visit: Yes (2) Cellulitis of leg, left SNOMED Code(s): 385951319 ICD Code: L03.116 - CELLULITIS OF LEFT LOWER LIMB Status: Acute Current Visit: Yes (3) Sepsis due to cellulitis SNOMED Code(s): 96344728 ICD Code: L03.90 - CELLULITIS, UNSPECIFIED; A41.9 - SEPSIS, UNSPECIFIED ORGANISM Status: Acute Current Visit: Yes (4) Acute kidney injury SNOMED Code(s): 52626902 ICD Code: N17.9 - ACUTE KIDNEY FAILURE, UNSPECIFIED Status: Acute Current Visit: Yes (5) COPD (chronic obstructive pulmonary disease) SNOMED Code(s): 47057011 ICD Code: J44.9 - CHRONIC OBSTRUCTIVE PULMONARY DISEASE, UNSPECIFIED Status : Chronic Current Visit: Yes Qualifiers: COPD type: unspecified COPD Qualified Code(s): J44.9 - Chronic obstructive pulmonary disease, unspecified (6) Diastolic congestive heart failure SNOMED Code(s): 646369366, 855013158 ICD Code: I50.30 - UNSPECIFIED DIASTOLIC (CONGESTIVE) HEART FAILURE Status : Chronic Current Visit: Yes Qualifiers: Congestive heart failure chronicity: chronic Qualified Code(s): I50.32 - Chronic diastolic (congestive) heart failure (7) CKD (chronic kidney disease), stage III SNOMED Code(s): 080069718 ICD Code: N18.3 - CHRONIC KIDNEY DISEASE, STAGE 3 (MODERATE) Status: Chronic Current Visit: Yes (8) Diabetes mellitus, type II, insulin dependent SNOMED Code(s): 183758853 ICD Code: E11.9 - TYPE 2 DIABETES MELLITUS WITHOUT COMPLICATIONS; Z79.4 - LONGTERM (CURRENT) USE OF INSULIN Status: Chronic Current Visit: Yes - Patient Summary/Data Consults: Consultations 01/31/17 15:35 Consult to Physician [CONS] Routine Consulting Provider: Doroteo Farmer Call Completed to Consulting Physician: Yes Reason for Consult: left leg wound Person Notified: RW Date Notified: 01/31/17 02/04/17 14:01 Consult to Physical Therapy [PT Evaluation and Treatment] [CONS] Routine Please Evaluate and Treat. PT Reason for Consult: Ambulation This query below is only for informational purposes and is not editable. Admission Diagnosis/Problem: Cellulitis of left lower leg Hospital Course: Mr. Vargas is a 81-year-old gentleman who has had ongoing difficulty with lymphedema and venous stasis in his left lower extremity. He developed increased pain and erythema of the lower and upper leg, on evaluation in the emergency department was felt to have cellulitis. There was also evidence of sepsis. On admission he was given broad-spectrum IV antibiotics and blood cultures were obtained which remained negative up until the time of discharge. He was given aggressive IV fluid replacement placement for management of sepsis and remained hemodynamically stable after admission. White blood cell count was initially elevated but did improve following antibiotic therapy. By the time of discharge his cellulitis had almost totally resolved and he will be treated with one additional week of oral antibiotic therapy with cephalexin 500 mg 3 times daily. With improvement in cellulitis the broad-spectrum antibiotics were discontinued and he was treated with Cefzil and up until the day prior to discharge. Blood glucose levels were monitored regularly during hospital stay and he was managed with long-acting and short acting insulin. On admission was noted to have acute on chronic kidney injury this resolved with IV fluids and by the time of discharge his creatinine is back to baseline. He has a known history of congestive heart failure and COPD which remained stable through his hospital stay. He will be discharged home on antibiotics as noted above and a follow-up appointment will be scheduled with Dr. Farmer within one week. Follow-up appointment will also be scheduled with his primary care provider within one week. Activity will be as tolerated and he will resume his usual diet. - Patient Instructions Diet: Low Sodium, Diabetic Diet Activity: As Tolerated Other/Special Instructions: Please arrange for home care with home physical therapy after discharge. Please schedule follow-up appointment with Dr. Farmer within one week. Please schedule follow-up appointment with primary care provider within one week. - Discharge Plan Prescriptions/Med Rec: Cephalexin [Keflex] 500 mg PO Q8H #21 cap Home Medications: Home Meds Aspirin [Halfprin] 81 mg PO DAILY 06/19/14 [History] Carvedilol 25 mg PO BID 06/19/14 [History] Insulin Glarg,Human.Rec.Analog [Lantus] 70 units SQ BEDTIME 06/19/14 [History] Isosorbide Mononitrate [Isosorbide Mononitrate ER] 30 mg PO BID 06/19/14 [ History] Lisinopril 40 mg PO DAILY 06/19/14 [History] Simvastatin [Zocor] 20 mg PO BEDTIME 06/19/14 [History] *O2 2 l INH ASDIRECTED 12/09/14 [History] Latanoprost 1 drop TOP BEDTIME 12/09/14 [History] Insulin Aspart [Novolog Flexpen] 26 unit SQ BID 01/22/17 [History] Acetaminophen 1,000 mg PO TID PRN 01/31/17 [History] Allopurinol [Zyloprim] 150 mg PO DAILY 01/31/17 [History] Aspirin 81 mg PO DAILY 01/31/17 [History] Famotidine 20 mg PO BEDTIME 01/31/17 [History] Magnesium Oxide 500 mg PO DAILY 01/31/17 [History] Tamsulosin [Flomax] 0.4 mg PO DAILY 01/31/17 [History] Torsemide 40 mg PO BID 02/01/17 [History] Cephalexin [Keflex] 500 mg PO Q8H #21 cap 02/06/17 [Rx] Referrals: Evaristo Browning PA [Primary Care Provider] - - Patient Data Vitals - Most Recent: Last Vital Signs Temp 100.6 F 02/06/17 11:00 Pulse 62 02/06/17 11:00 Resp 20 02/06/17 11:00 BP 193/79 H 02/06/17 11:00 Pulse Ox 95 02/06/17 11:00 Weight - Most Recent: 266 lb 1.6 oz I&O - Last 24 hours: Intake & Output 02/05/17 02/06/17 02/06/17 22:59 06:59 14:59 Intake Total 840 480 Output Total 2250 600 600 Balance -1410 -600 -120 Med Orders - Current: Current Medications Acetaminophen (Tylenol Extra Strength) 1,000 mg PO TID [facility] Last Admin: 02/06/17 08:51 Dose: 1,000 mg Albuterol (Proventil Neb Soln) 2.5 mg NEB Q4H PRN PRN Reason: Shortness Of Breath/wheezing Last Admin: 02/04/17 00:05 Dose: 2.5 mg Allopurinol (Zyloprim) 100 mg PO DAILY [facility] Last Admin: 02/06/17 08:52 Dose: 100 mg Aspirin (Aspirin) 81 mg PO DAILY [facility] Last Admin: 02/06/17 08:52 Dose: 81 mg Carvedilol (Coreg) 25 mg PO BID [facility] Last Admin: 02/06/17 08:51 Dose: 25 mg Cephalexin (Keflex) 500 mg PO Q8H [facility] Last Admin: 02/06/17 06:26 Dose: 500 mg Dimethicone/Zinc Oxide (Rash Relief-Zinc Oxide [place]) 1 gm TOP ASDIRECTED PRN PRN Reason: Rash Last Admin: 02/05/17 05:18 Dose: 1 applic Famotidine (Pepcid) 20 mg PO BEDTIME [facility] Last Admin: 02/05/17 20:49 Dose: 20 mg Heparin Sodium (Porcine) (Heparin Sodium) 5,000 units SUBCUT BID [facility] Last Admin: 02/06/17 08:50 Dose: 5,000 units Hydromorphone HCl (Dilaudid) 0.5 - 1 mg IVPUSH Q2H PRN PRN Reason: Pain (severe 7-10) Insulin Aspart (Novolog) 0 unit SUBCUT QIDACANDBED [facility] PRN Reason: Protocol Last Admin: 02/06/17 07:27 Dose: Not Given Insulin Detemir (Levemir) 20 unit SUBCUT BID [facility] Last Admin: 02/06/17 08:53 Dose: 20 units Isosorbide Mononitrate (Imdur) 30 mg PO BID [facility] Last Admin: 02/06/17 08:51 Dose: 30 mg Latanoprost (Xalatan 0.005% Ophth Soln) 0 ml EYEBOTH BEDTIME [facility] Last Admin: 02/05/17 20:49 Dose: 1 drop Lisinopril (Prinivil) 40 mg PO DAILY [facility] Last Admin: 02/06/17 08:50 Dose: 40 mg Ondansetron HCl (Zofran Odt) 4 mg PO Q6H PRN PRN Reason: Nausea able to take PO Ondansetron HCl (Zofran) 4 mg IV Q6H PRN PRN Reason: Nausea/Vomiting Oxycodone HCl (Oxycodone) 5 mg PO Q4H PRN PRN Reason: Pain (moderate 4-6) Last Admin: 02/02/17 05:04 Dose: 5 mg Polyethylene Glycol (Miralax) 17 gm PO DAILY PRN PRN Reason: Constipation Last Admin: 02/02/17 05:04 Dose: 17 gm Tamsulosin HCl (Flomax) 0.4 mg PO DAILY [facility] Last Admin: 02/06/17 08:51 Dose: 0.4 mg Torsemide (Demadex) 60 mg PO BIDDIURETIC [facility] Last Admin: 02/06/17 08:49 Dose: 60 mg Discontinued Medications Meropenem 500 mg/ Sodium (Chloride) 50 mls @ 100 mls/hr IV ONETIME ONE Stop: 01/31/17 13:44 Last Admin: 01/31/17 13:19 Dose: 100 mls/hr Vancomycin HCl 1.75 gm/ Sodium (Chloride) 250 mls @ 150 mls/hr IV Q24H [facility] Last Admin: 01/31/17 14:07 Dose: 150 mls/hr Vancomycin HCl 1.75 gm/ Sodium (Chloride) 250 mls @ 150 mls/hr IV Q24H [facility] Last Admin: 02/01/17 13:58 Dose: 150 mls/hr Meropenem 1 gm/ Sodium (Chloride) 50 mls @ 100 mls/hr IV Q8H [facility] Last Admin: 02/02/17 13:01 Dose: Not Given Sodium Chloride (Normal Saline) 1,000 mls @ 125 mls/hr IV ASDIRECTED [facility] Last Admin: 02/01/17 09:09 Dose: 125 mls/hr Cefazolin Sodium/Dextrose 2 gm (/ Premix) 50 mls @ 100 mls/hr IV Q8H [facility] Stop: 02/05/17 14:01 Last Admin: 02/05/17 13:57 Dose: 100 mls/hr Cefazolin Sodium 2 gm/ Sodium (Chloride) 50 mls @ 100 mls/hr IV Q8H [facility] Insulin Detemir (Levemir) 30 unit SUBCUT BID [facility] Last Admin: 02/02/17 08:36 Dose: 30 units Potassium Chloride (Klor-Con M20) 40 meq PO ONETIME ONE Stop: 02/02/17 13:01 Last Admin: 02/02/17 13:38 Dose: 40 meq Torsemide (Demadex) 40 mg PO BIDDIURETIC [facility] Last Admin: 02/04/17 08:08 Dose: 40 mg *Q Meaningful Use (DIS) - VTE *Q VTE Criteria *Q: VTE Mechanical Contraindications *Q: Bilateral Lower Edema - Stroke *Q Stroke Criteria *Q: - AMI *Q AMI Criteria *Q:
== END 2017-02-06 14:06 | disposition home or self-care (01) | DRG 872 ==
LOC: JP.ED 12:14 → JP.MS 13:50
PROVIDERS: ADMIT Internal Medicine; ATTEND Hospitalist
DX: A41.9 Sepsis, unspecified organism (principal); L03.116 Cellulitis of left lower limb; I50.32 Chronic diastolic (congestive) heart failure; N17.9 Acute kidney failure, unspecified; I89.1 Lymphangitis; J44.9 Chronic obstructive pulmonary disease, unspecified; E11.22 Type 2 diabetes mellitus with diabetic chronic kidney disease; N18.3 Chronic kidney disease, stage 3 (moderate); Z87.891 Personal history of nicotine dependence; Z99.81 Dependence on supplemental oxygen; Z79.82 Long term (current) use of aspirin; Z79.4 Long term (current) use of insulin; Z79.899 Other long term (current) drug therapy
CPT/HCPCS: 36415; 80053; 82962; 83605; 85025; 86140; 87040 ×2; 99285; J2185; J7050; 73700-26-LT; 73700-LT; 80048; 85027; 85610; 96374; 96375; 97116-GP; 97162-GP; A9270-GY; J0690; J1644; J3370; J7040

== ENCOUNTER 2018-01-23 16:00 | Emergency (ER) | payer MEDICARE, BC ==
[2018-01-23] MEDS ORDERED: Sodium Chloride 0.9% 10 ML Syringe FLUSH PRN (17:43)
[2018-01-23] MEDS ORDERED: Insulin Aspart 100 Units/ML 3 ML Pen SUBCUT ONE (17:43)
--- NOTE | 2018-01-23 17:49 | EDM.PDOC ---
ED HPI GENERAL MEDICAL PROBLEM - General Chief Complaint: General Stated Complaint: BLOOD SUGARS Time Seen by Provider: 01/23/18 17:30 Source of Information: Reports: Patient, Old Records History Limitations: Reports: Other (no call from clinic provider who sent patient to the ER) - History of Present Illness INITIAL COMMENTS - FREE TEXT/NARRATIVE: 82 yo male was seen in the clinic today and had labs drawn. When his BS was noted to be 600 he was told to come to the ER. No provider called us to give us any background data. Patient shows up in the garage telling us he was told to come here. He has known AODM and admits to being non-compliant with his diet. He denies any recent fever, vomiting, or chest pain. States his blood sugars are quite labile. Had gone to the clinic today for his draining, edematous L leg. The provider examined his leg and rewrapped it. Onset: Today Onset Date: 01/23/18 Duration: Other (unsure how long sugars have been high. Says he often has high blood sugars.) Severity: Severe (BS very high) Improves with: Reports: Medication (insulin) Worsens with: Reports: Other (not following his diet.) Context: Reports: Other (poorly controlled AODM) Associated Symptoms: Reports: No Other Symptoms Treatments GAS CHARGER: Reports: Other (see below) (none) - Related Data Allergies Allergy/AdvReac Type Severity Reaction Status Date / Time codeine Allergy Cannot Verified 01/23/18 17:26 Remember Home Meds: Home Meds Aspirin [Halfprin] 81 mg PO DAILY 06/19/14 [History] Carvedilol 25 mg PO BID 06/19/14 [History] Insulin Glarg,Human.Rec.Analog [Lantus] 70 units SQ BEDTIME 06/19/14 [History] Isosorbide Mononitrate [Isosorbide Mononitrate ER] 30 mg PO BID 06/19/14 [ History] Lisinopril 40 mg PO DAILY 06/19/14 [History] Simvastatin [Zocor] 20 mg PO BEDTIME 06/19/14 [History] *O2 2 l INH ASDIRECTED 12/09/14 [History] Latanoprost 1 drop TOP BEDTIME 12/09/14 [History] Insulin Aspart [Novolog Flexpen] 26 unit SQ BID 01/22/17 [History] Acetaminophen 1,000 mg PO TID PRN 01/31/17 [History] Allopurinol [Zyloprim] 150 mg PO DAILY 01/31/17 [History] Famotidine 20 mg PO BEDTIME 01/31/17 [History] Magnesium Oxide 500 mg PO DAILY 01/31/17 [History] Tamsulosin [Flomax] 0.4 mg PO DAILY 01/31/17 [History] Torsemide 40 mg PO BID 02/01/17 [History] Past Medical History Cardiovascular History: Reports: CAD, Heart Failure, Hypertension, [place] Respiratory History: Reports: COPD, Other (See Below) Other Respiratory History: Home O2 C pap Genitourinary History: Reports: Renal Disease Other Genitourinary History: Moderate kidney failure known kidney stone Musculoskeletal History: Reports: Gout Endocrine/Metabolic History: Reports: Diabetes, Type II Dermatologic History: Reports: Other (See Below) Other Dermatologic History: ozing legs seconday to edema - Infectious Disease History Infectious Disease History: Reports: Chicken Pox - Past Surgical History HEENT Surgical History: Reports: Cataract Surgery Other HEENT Surgeries/Procedures: laser and eye injections Cardiovascular Surgical History: Reports: Coronary Artery Bypass GI Surgical History: Reports: Hernia, Abdominal Social & Family History - Family History Endocrine/Metabolic: Reports: Diabetes, type II - Tobacco Use Smoking Status *Q: Former Smoker Years of Tobacco use: 15 Packs/Tins Daily: 1 Used Tobacco, but Quit: Yes Month/Year Tobacco Last Used: - Caffeine Use Caffeine Use: Reports: Coffee - Alcohol Use Date of Last Drink: 01/22/18 Time of Last Drink: 16:00 - Recreational Drug Use Recreational Drug Use: No ED ROS GENERAL - Review of Systems Review Of Systems: See Below Constitutional: Reports: No Symptoms HEENT: Reports: Vision Change (blurred) Respiratory: Reports: No Symptoms Cardiovascular: Reports: Edema (both LE's L>R). Denies: Chest Pain Endocrine: Reports: High Glucose GI/Abdominal: Reports: No Symptoms : Reports: No Symptoms Musculoskeletal: Reports: No Symptoms Skin: Reports: No Symptoms Neurological: Reports: No Symptoms ED EXAM, GENERAL - Physical Exam Exam: See Below Exam Limited By: No Limitations General Appearance: Alert, WD/WN, No Apparent Distress Eye Exam: Bilateral Eye: Normal Inspection Ears: Normal External Exam, Normal Canal, Hearing Loss Ear Exam: Bilateral Ear: Auricle Normal, Canal Normal Nose: Normal Inspection, Normal Mucosa, No Blood Throat/Mouth: Normal Inspection, Normal Lips, Normal Voice, No Airway Compromise Head: Atraumatic, Normocephalic Neck: Normal Inspection, Supple Respiratory/Chest: No Respiratory Distress, Lungs Clear, No Accessory Muscle Use Cardiovascular: Regular Rate, Rhythm. No: No Edema (bilateral LE edema L > R, R leg is newly wrapped to try to control this edema and keep the leg clean. ) GI/Abdominal: Normal Bowel Sounds, Soft, Non-Tender, No Distention Back Exam: Normal Inspection. No: CVA Tenderness (R), CVA Tenderness (L) Extremities: Pedal Edema. No: Normal Inspection, No Pedal Edema, Increased Warmth Neurological: Alert, Oriented, CN II-XII Intact, Normal Cognition, No Motor/ Sensory Deficits Psychiatric: Normal Affect, Normal Mood Skin Exam: Warm, Dry, Intact, Normal Color, No Rash Course - Vital Signs Text/Narrative:: Feels better after Toradol Last Recorded V/S: Last Vital Signs Temp 36.9 C 01/23/18 17:36 Pulse 74 01/23/18 16:29 Resp 18 01/23/18 17:36 BP 224/101 H 01/23/18 17:36 Pulse Ox 96 01/23/18 17:36 - Orders/Labs/Meds Orders: Active Orders 24 hr Category Date Time Status GLUCOSE RANDOM [CHEM] Stat Lab 01/23/18 17:49 Ordered TROPONIN I [CHEM] Stat Lab 01/23/18 17:36 Ordered UA W/MICROSCOPIC [URIN] Stat Lab 01/23/18 17:35 Ordered Sodium Chloride 0.9% [Saline Flush] Med 01/23/18 17:43 Ordered 10 ml FLUSH ASDIRECTED PRN Saline Lock Insert [OM.PC] Routine Oth 01/23/18 17:43 Ordered Medication Orders Sodium Chloride (Saline Flush) 10 ml FLUSH ASDIRECTED PRN PRN Reason: Keep Vein Open Labs: Laboratory Tests 01/23/18 Range/Units 17:36 WBC 7.9 (4.5-11.0) K/uL RBC 4.03 L (4.30-5.90) M/uL Hgb 12.0 (12.0-15.0) g/dL Hct 38.5 L (40.0-54.0) % MCV 96 (80-98) fL MCH 30 (27-31) pg MCHC 31 L (32-36) % Plt Count 159 (150-400) K/uL Meds: Medications Generic Name Dose Route Start Last Admin Trade Name Frefelicia PRN Reason Stop Dose Admin Sodium Chloride 10 ml 01/23/18 17:43 Saline Flush FLUSH ASDIRECTED PRN Keep Vein Open Discontinued Medications Generic Name Dose Route Start Last Admin Trade Name Freq PRN Reason Stop Dose Admin Insulin Aspart 30 unit 01/23/18 17:43 Novolog SUBCUT 01/23/18 17:44 ONETIME ONE Departure - Departure Time of Disposition: 17:59 Disposition: Home, Self-Care 01 Condition: Good Clinical Impression: Low back strain Qualifiers: Encounter type: initial encounter Qualified Code(s): S39.012A - Strain of muscle, fascia and tendon of lower back, initial encounter - Discharge Information *PRESCRIPTION DRUG MONITORING PROGRAM REVIEWED*: No *COPY OF PRESCRIPTION DRUG MONITORING REPORT IN PATIENT FELICIANO: No Instructions: Low Back Strain Referrals: Evaristo Browning PA [Primary Care Provider] - Forms: ED Department Discharge Additional Instructions: Take ibuprofen 600 mg every 6 hrs with food as needed. Avoid heavy lifting for a few days. Massage area. Get established with a local provider for further work up and continued care. - My Orders Last 24 Hours: My Active Orders 01/23/18 17:35 UA W/MICROSCOPIC [URIN] Stat 01/23/18 17:36 TROPONIN I [CHEM] Stat 01/23/18 17:43 Sodium Chloride 0.9% [Saline Flush] 10 ml FLUSH ASDIRECTED PRN Saline Lock Insert [OM.PC] Routine 01/23/18 17:49 GLUCOSE RANDOM [CHEM] Stat - Assessment/Plan Last 24 Hours: My Active Orders 01/23/18 17:35 UA W/MICROSCOPIC [URIN] Stat 01/23/18 17:36 TROPONIN I [CHEM] Stat 01/23/18 17:43 Sodium Chloride 0.9% [Saline Flush] 10 ml FLUSH ASDIRECTED PRN Saline Lock Insert [OM.PC] Routine 01/23/18 17:49 GLUCOSE RANDOM [CHEM] Stat
[2018-01-23 20:32] VITALS: BP 214/106
== END 2018-01-23 21:07 | disposition home or self-care (01) ==
LOC: JP.ED 16:00
DX: E11.9 Type 2 diabetes mellitus without complications (principal); S39.012A Strain of muscle, fascia and tendon of lower back, initial encounter; I11.0 Hypertensive heart disease with heart failure; I50.9 Heart failure, unspecified; J44.9 Chronic obstructive pulmonary disease, unspecified; Z79.82 Long term (current) use of aspirin; Z79.4 Long term (current) use of insulin; Z79.899 Other long term (current) drug therapy; Z88.5 Allergy status to narcotic agent; Z87.891 Personal history of nicotine dependence; X58.XXXA Exposure to other specified factors, initial encounter
CPT/HCPCS: 36415; 81001; 82947; 82962; 84484; 85027; 99284; A9270; J7050

== ENCOUNTER 2018-02-14 13:15 | Emergency (ER) | payer MEDICARE, BC ==
--- NOTE | 2018-02-14 14:07 | CR ---
Chest 1V Frontal HISTORY: sob COMPARISON: 12/09/2014, 04/09/2009 FINDINGS: Lungs appear clear and normally aerated. Mild cardiomegaly appears similar to prior exams. Old median sternotomy changes are noted. No vascular redistribution or pleural fluid can be seen. Bony structur es and soft tissues are unremarkable. IMPRESSION: No acute chest abnormality or significant interval change is identified.
--- NOTE | 2018-02-14 15:07 | EDM.PDOC ---
ED HPI GENERAL MEDICAL PROBLEM - General Chief Complaint: Chest Pain Stated Complaint: CHEST PAIN Time Seen by Provider: 02/14/18 13:25 Source of Information: Reports: Patient History Limitations: Reports: No Limitations - History of Present Illness INITIAL COMMENTS - FREE TEXT/NARRATIVE: PT ARRIVED WITH A HISTORY OF CHEST PAIN WITH DEEP BREATHING. He has had chest pain for the past 3-4 days. He did have some very high bs and it was when his sugars were in the 500 range that he began to have chest pain. He is sob at nite. He has had alot of fluid retention and he has lost 7 lbs in the last 2 days with the diuretics. He has a leg ulcer which is being followed by our woundclinic and it is getting better. Onset: Other (pt has had pain in the last 2-3 day--chest pain. ) Duration: Day(s): Location: Reports: Chest Associated Symptoms: Reports: Chest Pain, Malaise, Shortness of Breath Chest Pain Score (Numeric/FACES): 2 - Related Data Allergies Allergy/AdvReac Type Severity Reaction Status Date / Time codeine Allergy Cannot Verified 02/14/18 13:33 Remember Home Meds: Home Meds Aspirin [Halfprin] 81 mg PO DAILY 06/19/14 [History] Carvedilol 25 mg PO BID 06/19/14 [History] Insulin Glarg,Human.Rec.Analog [Lantus] 70 units SQ BEDTIME 06/19/14 [History] Isosorbide Mononitrate [Isosorbide Mononitrate ER] 60 mg PO DAILY 06/19/14 [ History] Lisinopril 40 mg PO DAILY 06/19/14 [History] Simvastatin [Zocor] 20 mg PO BEDTIME 06/19/14 [History] *O2 2 l INH ASDIRECTED 12/09/14 [History] Latanoprost 1 drop TOP BEDTIME 12/09/14 [History] Insulin Aspart [Novolog Flexpen] 26 unit SQ BID 01/22/17 [History] Acetaminophen 1,000 mg PO TID PRN 01/31/17 [History] Allopurinol [Zyloprim] 150 mg PO DAILY 01/31/17 [History] Famotidine 20 mg PO BEDTIME 01/31/17 [History] Magnesium Oxide 500 mg PO DAILY 01/31/17 [History] Tamsulosin [Flomax] 0.4 mg PO DAILY 01/31/17 [History] Torsemide 40 mg PO BID 02/01/17 [History] Calcitriol [Rocaltrol] 1 cap PO ASDIRECTED 01/23/18 [History] Colchicine 1 tab PO ASDIRECTED 01/23/18 [History] Cyanocobalamin (Vitamin B-12) [Vitamin B-12] 1 tab SL DAILY 01/23/18 [History] Potassium Chloride [Klor-Con M20] 10 meq PO DAILY 01/23/18 [History] metOLazone [Zaroxolyn] 2.5 mg PO ASDIRECTED 01/23/18 [History] tiZANidine [Zanaflex] 1 tab PO TID 01/23/18 [History] traMADol [Ultram] 100 mg PO Q6HR PRN 01/23/18 [History] Past Medical History HEENT History: Reports: Cataract Cardiovascular History: Reports: CAD, Heart Failure, Hypertension, [place] Respiratory History: Reports: COPD, Sleep Apnea, Other (See Below) Other Respiratory History: Home O2 C pap Genitourinary History: Reports: Acute Renal Failure, Renal Disease 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 soon Musculoskeletal History: Reports: Back Pain, Chronic, Gout Other Musculoskeletal History: polyarthritis Endocrine/Metabolic History: Reports: Diabetes, Type II Dermatologic History: Reports: Cellulitis, Decubitus Ulcer, Other (See Below) Other Dermatologic History: ozing legs seconday to edema - Infectious Disease History Infectious Disease History: Reports: Chicken Pox - Past Surgical History HEENT Surgical History: Reports: Cataract Surgery Other HEENT Surgeries/Procedures: laser and eye injections Cardiovascular Surgical History: Reports: Coronary Artery Bypass GI Surgical History: Reports: Hernia, Abdominal Social & Family History - Family History Endocrine/Metabolic: Reports: Diabetes, type II - Tobacco Use Smoking Status *Q: Former Smoker Used Tobacco, but Quit: Yes Month/Year Tobacco Last Used: 50 years - Caffeine Use Caffeine Use: Reports: Coffee - Alcohol Use Number of Drinks Per Day: 2 - Recreational Drug Use Recreational Drug Use: No ED ROS GENERAL - Review of Systems Review Of Systems: See Below Constitutional: Reports: No Symptoms, Weight Loss, Other (pt has diauresed 7 lbs down in the last 2 days. ) HEENT: Reports: No Symptoms Respiratory: Reports: Shortness of Breath Cardiovascular: Reports: Chest Pain Endocrine: Reports: High Glucose, Other (pt has a bs of 160 now but he has been running some sugars in the 500 range. ) GI/Abdominal: Reports: No Symptoms : Reports: No Symptoms Musculoskeletal: Reports: No Symptoms Skin: Reports: Other (lef ulcer on the left leg and foot. ) Neurological: Reports: No Symptoms Psychiatric: Reports: No Symptoms Hematologic/Lymphatic: Reports: No Symptoms ED EXAM, GENERAL - Physical Exam Exam: See Below Free Text/Narrative:: pt arrived stating that he has had chest pain for the past 3 days. He at first described more pleuretic chest pain. He had ekg changes in the lateral ts were inverted. He has left bundle that is not new. Exam Limited By: No Limitations General Appearance: Alert, Other (pt still had pain at a 3 on arrival and thaT WENT AWAY. ) Ears: Normal TMs Nose: Normal Inspection Throat/Mouth: Normal Inspection Head: Atraumatic Neck: Normal Inspection Respiratory/Chest: No Respiratory Distress Cardiovascular: Regular Rate, Rhythm, Other (PT IS HAVING FREQUENT ECTOPICS AT TIME BIGEMINEY) GI/Abdominal: Soft, Non-Tender (Male) Exam: Deferred Rectal (Males) Exam: Deferred Back Exam: Normal Inspection Extremities: Other (PT HAS EDEMA IN BOTH LOWER EXTREMITIES. hE HAS A LEG ULCER ON THE LEFT LEG AND FOOT. ) Neurological: Alert, Oriented, Normal Cognition Psychiatric: Normal Affect Course - Vital Signs Last Recorded V/S: Last Vital Signs Temp 36.2 C 02/14/18 13:23 Pulse 99 02/14/18 16:15 Resp 16 02/14/18 16:15 BP 193/82 H 02/14/18 16:15 Pulse Ox 95 02/14/18 15:26 - Orders/Labs/Meds Labs: Laboratory Tests 02/14/18 02/14/18 02/14/18 Range/Units 13:39 13:39 13:39 WBC 12.3 H (4.5-11.0) K/uL RBC 4.07 L (4.30-5.90) M/uL Hgb 12.2 (12.0-15.0) g/dL Hct 37.8 L (40.0-54.0) % MCV 93 (80-98) fL MCH 30 (27-31) pg MCHC 32 (32-36) % Plt Count 221 (150-400) K/uL Neut % (Auto) 68 H (36-66) % Lymph % (Auto) 24 (24-44) % [place] % (Auto) 7 H (2-6) % Eos % (Auto) 1 L (2-4) % Baso % (Auto) 0 (0-1) % D-Dimer, Quantitative (0.0-400.0) ng/mL Sodium 138 L (140-148) mmol/L Potassium 4.1 (3.6-5.2) mmol/L Chloride 98 L (100-108) mmol/L Carbon Dioxide 34 H (21-32) mmol/L Anion Gap 10.1 (5.0-14.0) mmol/L BUN 69 H D (7-18) mg/dL Creatinine 3.7 H* D (0.8-1.3) mg/dL Est Cr Clr Drug Dosing 14.37 mL/min Estimated GFR (MDRD) 16 L (>60) Glucose 167 H (74-106) mg/dL Calcium 9.4 (8.5-10.1) mg/dL Total Bilirubin 0.4 (0.2-1.0) mg/dL AST 27 (15-37) U/L ALT 26 (12-78) U/L Alkaline Phosphatase 127 H (46-116) U/L Troponin I 0.236 H* (0.000-0.056) ng/mL Total Protein 6.9 (6.4-8.2) g/dL Albumin 3.0 L (3.4-5.0) g/dL Globulin 3.9 H (2.3-3.5) g/dL Albumin/Globulin Ratio 0.8 L (1.2-2.2) Urine Color Urine Appearance Urine pH (4.5-8.0) Ur Specific Corder (1.008-1.030) Urine Protein (NEGATIVE) mg/dL Urine Glucose (UA) (NEGATIVE) mg/dL Urine Ketones (NEGATIVE) mg/dL Urine Occult Blood (NEGATIVE) Urine Nitrite (NEGAITVE) Urine Bilirubin (NEGATIVE) Urine Urobilinogen (NORMAL) mg/dL Ur Leukocyte Esterase (NEGATIVE) Urine RBC (0-5) Urine WBC (0-5) Ur Epithelial Cells Amorphous Sediment Urine Bacteria Urine Mucus Urine Other 02/14/18 02/14/18 Range/Units 13:39 14:41 WBC (4.5-11.0) K/uL RBC (4.30-5.90) M/uL Hgb (12.0-15.0) g/dL Hct (40.0-54.0) % MCV (80-98) fL MCH (27-31) pg MCHC (32-36) % Plt Count (150-400) K/uL Neut % (Auto) (36-66) % Lymph % (Auto) (24-44) % [place] % (Auto) (2-6) % Eos % (Auto) (2-4) % Baso % (Auto) (0-1) % D-Dimer, Quantitative 463 H (0.0-400.0) ng/mL Sodium (140-148) mmol/L Potassium (3.6-5.2) mmol/L Chloride (100-108) mmol/L Carbon Dioxide (21-32) mmol/L Anion Gap (5.0-14.0) mmol/L BUN (7-18) mg/dL Creatinine (0.8-1.3) mg/dL Est Cr Clr Drug Dosing mL/min Estimated GFR (MDRD) (>60) Glucose (74-106) mg/dL Calcium (8.5-10.1) mg/dL Total Bilirubin (0.2-1.0) mg/dL AST (15-37) U/L ALT (12-78) U/L Alkaline Phosphatase (46-116) U/L Troponin I (0.000-0.056) ng/mL Total Protein (6.4-8.2) g/dL Albumin (3.4-5.0) g/dL Globulin (2.3-3.5) g/dL Albumin/Globulin Ratio (1.2-2.2) Urine Color Yellow Urine Appearance Slightly cloudy Urine pH 7.0 (4.5-8.0) Ur Specific Corder 1.005 L (1.008-1.030) Urine Protein 500 H (NEGATIVE) mg/dL Urine Glucose (UA) Normal (NEGATIVE) mg/dL Urine Ketones Negative (NEGATIVE) mg/dL Urine Occult Blood Negative (NEGATIVE) Urine Nitrite Negative (NEGAITVE) Urine Bilirubin Negative (NEGATIVE) Urine Urobilinogen Normal (NORMAL) mg/dL Ur Leukocyte Esterase Negative (NEGATIVE) Urine RBC Not seen (0-5) Urine WBC 0-5 (0-5) Ur Epithelial Cells Rare Amorphous Sediment Rare Urine Bacteria Not seen Urine Mucus Not seen Urine Other See note Meds: Medications Discontinued Medications Generic Name Dose Route Start Last Admin Trade Name Romarioq PRN Reason Stop Dose Admin Aspirin 324 mg 02/14/18 15:25 02/14/18 15:44 Aspirin PO 02/14/18 15:26 324 mg ONETIME ONE Administration Nitroglycerin/Dextrose 25 mg in 250 mls @ 6 mls/hr 02/14/18 15:15 02/14/18 16 :09 Nitroglycerin 25 Mg/D5w 250 Ml IV 15 mcg/min TITRATE JANAK 9 mls/hr Titration Protocol 10 MCG/MIN - Re-Assessments/Exams Free Text/Narrative Re-Assessment/Exam: 02/14/18 15:39 PT HAS A CREATNINE OF 3.7 AND HS TROP IS GREATER THAN .2. hE HAD A TROP 2 WEEKS AGO WITH THE SAME CREATNINE LEVEL THAT WAS NORMAL .050 hE HAS SOME SLIGHT CHANGES ON HIS EKG. hIS CHEST XRAY LOOKS GOOD. cARDIOLOGY WAS CaLLED AND HE WAS ACCEPTED FOR A WORK UP. 02/18/18 18:17 Departure - Departure Time of Disposition: 15:41 Disposition: DC/Tfer to Acute Hospital 02 Reason for Transfer *Q: Primary PCI Indicated Condition: Fair Clinical Impression: Chest pain, Elevated troponin, Renal insufficiency Referrals: Evaristo Browning PA [Primary Care Provider] - Forms: ED Department Discharge Care Plan Goals: TRANSFER TO [facility].
[2018-02-14] MEDS ORDERED: Nitroglycerin/D5W 25 MG/250 ML BOTTLE IV SCH (15:15)
[2018-02-14] MEDS ORDERED: Aspirin 81 MG Tab.Chew PO ONE (15:25)
[2018-02-14 16:54] VITALS: BP 193/82
== END 2018-02-14 16:45 ==
LOC: JP.ED 13:15
DX: R07.9 Chest pain, unspecified (principal); R79.89 Other specified abnormal findings of blood chemistry; N28.9 Disorder of kidney and ureter, unspecified; I13.0 Hypertensive heart and chronic kidney disease with heart failure and stage 1 through stage 4 chronic kidney disease, or unspecified chronic kidney disease; E11.22 Type 2 diabetes mellitus with diabetic chronic kidney disease; I50.9 Heart failure, unspecified; N18.4 Chronic kidney disease, stage 4 (severe); Z88.5 Allergy status to narcotic agent; Z87.891 Personal history of nicotine dependence
CPT/HCPCS: 36415; 71045; 80053; 81001; 84484; 85025; 85379; 93005; 96365; 99285; A9270; J3490; 93010

== ENCOUNTER 2019-07-02 06:13 | Emergency (ER) | payer MEDICARE, BC ==
--- NOTE | 2019-07-02 07:24 | EDM.PDOC ---
ED HPI GENERAL MEDICAL PROBLEM - General Chief Complaint: Gastrointestinal Problem Stated Complaint: [facility] Time Seen by Provider: 07/02/19 07:00 Source of Information: Reports: Patient, EMS, Family History Limitations: Reports: No Limitations - History of Present Illness INITIAL COMMENTS - FREE TEXT/NARRATIVE: 83-year-old male with chronic congestive heart failure, renal failure who receives peritoneal dialysis and progressive weakness developed very watery diarrhea last p.m. around 9:00 and has had several episodes overnight. He is already chronically weak, his could not get her out of bed this morning so the ambulance was called. He has no fevers or chills, he has less shortness of breath now than usual. He has pain in the lower back and buttock area from sensitive skin but denies any other discomfort. His chief complaint is the diarrhea and weakness. He was on a course of Zithromax a month and a half ago but no recent antibiotics. No recent travel. Onset: Sudden (Diarrhea started fairly suddenly last p.m. at 9:00) Duration: Hour(s): (12 hours) Improves with: Reports: None Worsens with: Reports: None Associated Symptoms: Reports: Malaise, Weakness. 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, Other (see below) Buttocks Pain Score (Numeric/FACES): 6 - Related Data Allergies Allergy/AdvReac Type Severity Reaction Status Date / Time codeine Allergy Cannot Verified 07/02/19 07:05 Remember Home Meds: Home Meds Aspirin [Halfprin] 81 mg PO DAILY 06/19/14 [History] Simvastatin [Zocor] 20 mg PO BEDTIME 06/19/14 [History] Allopurinol [Zyloprim] 150 mg PO DAILY 01/31/17 [History] Famotidine 20 mg PO BEDTIME 01/31/17 [History] Bumetanide 4 mg PO BID 07/02/19 [History] Carvedilol [Coreg] 6.25 mg PO BID 07/02/19 [History] Folic Acid/Vit B Complex and C [Dialyvite] 1 tab PO DAILY 07/02/19 [History] Pantoprazole [ProTONIX] 40 mg PO DAILY 07/02/19 [History] Sevelamer Carbonate [Renvela] 800 mg PO TID 07/02/19 [History] Past Medical History HEENT History: Reports: Cataract Cardiovascular History: Reports: CAD, Heart Failure, Hypertension, [place] Respiratory History: Reports: COPD, Sleep Apnea, Other (See Below) Other Respiratory History: Home O2 C pap Genitourinary History: Reports: Acute Renal Failure, Renal Disease 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 soon Musculoskeletal History: Reports: Back Pain, Chronic, Gout Other Musculoskeletal History: polyarthritis Endocrine/Metabolic History: Reports: Diabetes, Type II Dermatologic History: Reports: Cellulitis, Decubitus Ulcer, Other (See Below) Other Dermatologic History: ozing legs seconday to edema - Infectious Disease History Infectious Disease History: Reports: Chicken Pox - Past Surgical History HEENT Surgical History: Reports: Cataract Surgery Other HEENT Surgeries/Procedures: laser and eye injections Cardiovascular Surgical History: Reports: Coronary Artery Bypass GI Surgical History: Reports: Hernia, Abdominal Social & Family History - Family History Endocrine/Metabolic: Reports: Diabetes, type II - Caffeine Use Caffeine Use: Reports: Coffee ED ROS GENERAL - Review of Systems Review Of Systems: See Below Constitutional: Reports: Malaise. Denies: Fever, Chills HEENT: Reports: Other (Very hard of hearing, wears hearing aids) Respiratory: Reports: Shortness of Breath (Chronic shortness of breath, actually good right now. Was treated for "bronchitis" a month and a half ago) Cardiovascular: Denies: Chest Pain, Palpitations GI/Abdominal: Reports: Constipation (Tends to have chronic constipation, recently took laxatives), Other (Struggles with significant reflux, was seen in the clinic last week and started on a second PPI). Denies: Abdominal Pain : Reports: Other (Peritoneal dialysis) Skin: Reports: Other (Has some grade 1 skin breakdown of the buttocks bilaterally from chronic compression, no ulcerations). Denies: Jaundice Neurological: Reports: Weakness. Denies: Confusion Psychiatric: Reports: No Symptoms ED EXAM, GENERAL - Physical Exam Exam: See Below Exam Limited By: No Limitations General Appearance: Alert, No Apparent Distress (Appears tired but not distressed) Eye Exam: Bilateral Eye: EOMI (No jaundice) Throat/Mouth: Other (Mucous membranes appear hydrated) Respiratory/Chest: No Respiratory Distress, Other (Lungs are clear anteriorly, a few basilar rales posteriorly) Cardiovascular: Regular Rate, Rhythm, Systolic Murmur (Very distant systolic murmur), Extra Beats ( a few ectopic beats are heard) GI/Abdominal: Non-Tender, Abnormal Bowel Sounds (Bowel sounds are mildly hypoactive, he has no tenderness to palpation) Neurological: Alert, Oriented Skin Exam: Warm, Dry, Other (The skin on the buttocks posteriorly is intact but thin, somewhat dusky and there is desquamation occurring. The area is tender to palpation but not warm or erythematous) Course - Vital Signs Last Recorded V/S: Last Vital Signs Temp 96.2 F 07/02/19 06:41 Pulse 80 07/02/19 08:24 Resp 14 07/02/19 06:41 BP 162/88 H 07/02/19 08:24 Pulse Ox 98 07/02/19 08:24 - Orders/Labs/Meds Labs: Laboratory Tests 07/02/19 07/02/19 Range/Units 07:38 07:38 WBC 28.1 H (4.5-11.0) K/uL RBC 4.42 (4.30-5.90) M/uL Hgb 15.3 H D (12.0-15.0) g/dL Hct 46.1 (40.0-54.0) % MCV 104 H (80-98) fL MCH 35 H (27-31) pg MCHC 33 (32-36) % Plt Count 332 (150-400) K/uL Neut % (Auto) 87 H (36-66) % Lymph % (Auto) 6 L (24-44) % [place] % (Auto) 7 H (2-6) % Eos % (Auto) 0 L (2-4) % Baso % (Auto) 0 (0-1) % Sodium 135 L (140-148) mmol/L Potassium 3.2 L (3.6-5.2) mmol/L Chloride 92 L (100-108) mmol/L Carbon Dioxide 23 (21-32) mmol/L Anion Gap 23.2 H (5.0-14.0) mmol/L BUN 66 H D (7-18) mg/dL Creatinine 8.7 H* D (0.8-1.3) mg/dL Est Cr Clr Drug Dosing 6.01 mL/min Estimated GFR (MDRD) 6 L (>60) Glucose 167 H (74-106) mg/dL Calcium 10.0 (8.5-10.1) mg/dL Total Bilirubin 0.4 (0.2-1.0) mg/dL AST 27 (15-37) U/L ALT 19 (12-78) U/L Alkaline Phosphatase 153 H (46-116) U/L Total Protein 7.4 (6.4-8.2) g/dL Albumin 2.4 L (3.4-5.0) g/dL Globulin 5.0 H (2.3-3.5) g/dL Albumin/Globulin Ratio 0.5 L (1.2-2.2) Meds: Medications Discontinued Medications Generic Name Dose Route Start Last Admin Trade Name Gabriel PRN Reason Stop Dose Admin Sodium Chloride 500 mls @ 1,000 mls/hr 07/02/19 07:30 07/02/19 07:45 Normal Saline IV 1,000 mls/hr ASDIRECTED JANAK Administration - Re-Assessments/Exams Free Text/Narrative Re-Assessment/Exam: 07/02/19 07:27 Patient will be given 500 cc of normal saline IV, CBC and CMP obtained. Patient feels his diarrhea is "over" but if he does have a stool we will run C. difficile and check for WBC. 07/02/19 08:30 Patient had no active diarrhea the 2 hours he was in the emergency room. He rested comfortably while receiving a half a liter of normal saline. No shortness of breath or pain. White count did return elevated at 28,000 and creatinine is 8.7, in reviewing his past labs these tend to be elevated chronically. We discussed admission but the patient and his strongly wanted to try to go home as we cannot admit here if they are on dialysis. If he does not improve over the next several days they will return for recheck. They are going to contact their primary provider to discuss getting a hospital bed for him at home and I also encouraged probiotics over the next several days. Departure - Departure Time of Disposition: 08:49 Disposition: Home, Self-Care 01 Clinical Impression: Generalized weakness Diarrhea Qualifiers: Diarrhea type: unspecified type Qualified Code(s): R19.7 - Diarrhea, unspecified - Discharge Information Instructions: Diarrhea, Adult, [id number] Referrals: Adina Aguilera MD [Primary Care Provider] - Forms: ED Department Discharge Care Plan Goals: Continue current dialysis schedule and medications. Consider replacing healthy bacteria with probiotics or yogurt over the next several days. Return anytime if worsening or concerns. Sepsis Event Note - Evaluation Sepsis Screening Result: No Definite Risk - Focused Exam Vital Signs: Vital Signs Temp Pulse Resp BP Pulse Ox 07/02/19 08:24 80 162/88 H 98 07/02/19 07:54 96 176/59 H 97 07/02/19 07:24 66 179/72 H 98 07/02/19 06:54 98 162/64 H 99 07/02/19 06:43 91 172/63 H 98 07/02/19 06:41 96.2 F 80 14 172/63 H 98 Date Exam was Performed: 07/02/19 Time Exam was Performed: 13:12
[2019-07-02] MEDS ORDERED: Sodium Chloride 0.9% 500 ML IV SCH (07:30)
[2019-07-02 08:47] VITALS: BP 162/88; PULSE 80
== END 2019-07-02 09:15 | disposition home or self-care (01) ==
LOC: JP.ED 06:13
DX: R53.1 Weakness (principal); R19.7 Diarrhea, unspecified; I11.0 Hypertensive heart disease with heart failure; I50.9 Heart failure, unspecified; I25.10 Atherosclerotic heart disease of native coronary artery without angina pectoris; I25.2 Old myocardial infarction; J44.9 Chronic obstructive pulmonary disease, unspecified; M10.9 Gout, unspecified; E11.9 Type 2 diabetes mellitus without complications; Z88.5 Allergy status to narcotic agent; Z79.899 Other long term (current) drug therapy; Z79.82 Long term (current) use of aspirin
CPT/HCPCS: 36415; 80053; 85025; 99283; 99285; J7030

== ENCOUNTER 2019-07-16 15:41 | Emergency (ER) | payer MEDICARE, BC ==
[2019-07-16] MEDS ORDERED: Acetaminophen/oxyCODONE 325-5 MG Tab PO STA ×2 (16:14→17:26)
--- NOTE | 2019-07-16 16:25 | EDM.PDOC ---
ED HPI GENERAL MEDICAL PROBLEM - General Chief Complaint: Lower Extremity Injury/Pain Stated Complaint: SEVERE LEFT LEG PAIN Time Seen by Provider: 07/16/19 16:05 Source of Information: Reports: Patient, Family, Old Records History Limitations: Reports: Other (incomplete records) - History of Present Illness INITIAL COMMENTS - FREE TEXT/NARRATIVE: 83 yo male was seen in the clinic yesterday for L calf pain. A non-vascular US was performed that showed a fluid collection of ? cause in the calf. The family has not gotten the official dx and has not been given anything for pain. He cannot tolerated the pain so comes now to the ER. The leg has gotten more red since yesterday, but there has not been a fever. Has an open shallow ulcer to the L medial calf. Is a peritoneal dialysis patient, makes a small amt of urine. Onset: Gradual Duration: Day(s):, Getting Worse Location: Reports: Lower Extremity, Left Quality: Reports: Ache Severity: Severe Improves with: Reports: None Worsens with: Reports: Other (? time) Context: Reports: Other (See HPI) Associated Symptoms: Reports: Rash (Redness to the L leg). 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: Other (see below) (none) Left Lower Leg Pain Score (Numeric/FACES): 10 - Related Data Allergies Allergy/AdvReac Type Severity Reaction Status Date / Time codeine Allergy Cannot Verified 07/02/19 07:05 Remember Home Meds: Home Meds Aspirin [Halfprin] 81 mg PO DAILY 06/19/14 [History] Simvastatin [Zocor] 20 mg PO BEDTIME 06/19/14 [History] Allopurinol [Zyloprim] 150 mg PO DAILY 01/31/17 [History] Famotidine 20 mg PO BEDTIME 01/31/17 [History] Bumetanide 4 mg PO BID 07/02/19 [History] Carvedilol [Coreg] 6.25 mg PO BID 07/02/19 [History] Folic Acid/Vit B Complex and C [Dialyvite] 1 tab PO DAILY 07/02/19 [History] Pantoprazole [ProTONIX] 40 mg PO DAILY 07/02/19 [History] Sevelamer Carbonate [Renvela] 800 mg PO TID 07/02/19 [History] Past Medical History HEENT History: Reports: Cataract Cardiovascular History: Reports: CAD, Heart Failure, Hypertension, [place] Respiratory History: Reports: COPD, Sleep Apnea, Other (See Below) Other Respiratory History: Home O2 C pap Gastrointestinal History: Reports: Other (See Below) Other Gastrointestinal History: abdominal hernia Genitourinary History: Reports: Acute Renal Failure, Renal Disease 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 soon Musculoskeletal History: Reports: Back Pain, Chronic, Gout Other Musculoskeletal History: polyarthritis Endocrine/Metabolic History: Reports: Diabetes, Type II Dermatologic History: Reports: Cellulitis, Decubitus Ulcer, Other (See Below) Other Dermatologic History: ozing legs seconday to edema - Infectious Disease History Infectious Disease History: Reports: Chicken Pox - Past Surgical History HEENT Surgical History: Reports: Cataract Surgery Other HEENT Surgeries/Procedures: laser and eye injections Cardiovascular Surgical History: Reports: Coronary Artery Bypass GI Surgical History: Reports: Hernia, Abdominal Social & Family History - Family History Endocrine/Metabolic: Reports: Diabetes, type II - Caffeine Use Caffeine Use: Reports: Coffee Review of Systems - Review of Systems Review Of Systems: See Below Constitutional: Reports: No Symptoms Eyes: Reports: No Symptoms Ears: Reports: No Symptoms Nose: Reports: No Symptoms Mouth/Throat: Reports: No Symptoms Respiratory: Reports: No Symptoms Cardiovascular: Reports: No Symptoms GI/Abdominal: Reports: Other (peritoneal dialysis at home) Musculoskeletal: Reports: Leg Pain (L leg) Skin: Reports: Erythema (L calf and medial thigh), Wound (L medial ankle, shallow ulcer with weeping) Neurological: Reports: No Symptoms Psychiatric: Reports: Other (crying) ED EXAM, GENERAL - Physical Exam Exam: See Below Exam Limited By: No Limitations General Appearance: Alert, WD/WN, No Apparent Distress, Obese Eye Exam: Bilateral Eye: Normal Inspection Ears: Normal External Exam, Normal Canal Ear Exam: Bilateral Ear: Auricle Normal, Canal Normal Nose: Normal Inspection, No Blood Throat/Mouth: Normal Inspection, Normal Oropharynx, Normal Voice, No Airway Compromise Head: Atraumatic, Normocephalic Neck: Normal Inspection Respiratory/Chest: No Respiratory Distress, Lungs Clear, Normal Breath Sounds, No Accessory Muscle Use Cardiovascular: Regular Rate, Rhythm, Other (large edema to both LE's, L>R) GI/Abdominal: Normal Bowel Sounds, Soft, No Distention, Tender (mild, diffuse) Extremities: Pedal Edema (marked edema of the L leg, somewhat less to the R leg. ), Leg Pain (L calf and medial thigh painful. ), Increased Warmth (L calf and medial leg slightly warmer. ), Redness (L calf and medial L thigh). No: Normal Inspection, Normal Range of Motion, Non-Tender, No Pedal Edema Neurological: Alert, Oriented, CN II-XII Intact, Normal Cognition, No Motor/ Sensory Deficits Psychiatric: Normal Affect, Depressed Mood Skin Exam: Warm, Erythema (L calf and medial L thigh), Increased Warmth (slight increase in L leg warmth. ), Wound/Incision (shallow L medial ankle ulcer) Course - Vital Signs Last Recorded V/S: Last Vital Signs Temp 36.3 C 07/16/19 16:56 Pulse 96 07/16/19 16:56 Resp 18 07/16/19 16:56 BP 141/79 H 07/16/19 16:56 Pulse Ox 90 L 07/16/19 16:56 - Orders/Labs/Meds Orders: Active Orders 24 hr Category Date Time Status CXR [Chest 1V Frontal] [CR] Stat Exams 07/16/19 16:48 Taken UA W/MICROSCOPIC [URIN] Stat Lab 07/16/19 16:51 Ordered Sodium Chloride 0.9% [Normal Saline] 1,000 ml Med 07/16/19 17:40 Active IV .BOLUS Vancomycin 1.5 gm Med 07/16/19 18:08 Ordered Sodium Chloride 0.9% [Normal Saline] 250 ml IV NOW Medication Orders Sodium Chloride (Normal Saline) 1,000 mls @ 1,000 mls/hr IV .BOLUS ONE Stop: 07/16/19 18:39 Vancomycin HCl 1.5 gm/ Sodium (Chloride) 250 mls @ 150 mls/hr IV NOW STA Stop: 07/16/19 19:47 Labs: Laboratory Tests 07/16/19 07/16/19 07/16/19 Range/Units 16:22 16:22 16:22 WBC 16.6 H (4.5-11.0) K/uL RBC 3.75 L (4.30-5.90) M/uL Hgb 13.1 D (12.0-15.0) g/dL Hct 39.1 L (40.0-54.0) % MCV 104 H (80-98) fL MCH 35 H (27-31) pg MCHC 34 (32-36) % Plt Count 349 (150-400) K/uL D-Dimer, Quantitative 250 (0.0-400.0) ng/mL Sodium (140-148) mmol/L Potassium (3.6-5.2) mmol/L Chloride (100-108) mmol/L Carbon Dioxide (21-32) mmol/L Anion Gap (5.0-14.0) mmol/L BUN (7-18) mg/dL Creatinine (0.8-1.3) mg/dL Est Cr Clr Drug Dosing mL/min Estimated GFR (MDRD) (>60) Glucose (74-106) mg/dL Lactic Acid (0.4-2.0) mmol/L Calcium (8.5-10.1) mg/dL C-Reactive Protein 1.64 H (0.0-0.3) mg/dL 07/16/19 07/16/19 Range/Units 16:52 17:37 WBC (4.5-11.0) K/uL RBC (4.30-5.90) M/uL Hgb (12.0-15.0) g/dL Hct (40.0-54.0) % MCV (80-98) fL MCH (27-31) pg MCHC (32-36) % Plt Count (150-400) K/uL D-Dimer, Quantitative (0.0-400.0) ng/mL Sodium 133 L (140-148) mmol/L Potassium 4.1 (3.6-5.2) mmol/L Chloride 92 L (100-108) mmol/L Carbon Dioxide 23 (21-32) mmol/L Anion Gap 22.1 H (5.0-14.0) mmol/L BUN 69 H (7-18) mg/dL Creatinine 8.4 H* (0.8-1.3) mg/dL Est Cr Clr Drug Dosing 6.67 mL/min Estimated GFR (MDRD) 6 L (>60) Glucose 302 H (74-106) mg/dL Lactic Acid 2.9 H (0.4-2.0) mmol/L Calcium 8.8 (8.5-10.1) mg/dL C-Reactive Protein (0.0-0.3) mg/dL Meds: Medications Generic Name Dose Route Start Last Admin Trade Name Freq PRN Reason Stop Dose Admin Sodium Chloride 1,000 mls @ 1,000 mls/hr 07/16/19 17:40 Normal Saline IV 07/16/19 18:39 .BOLUS ONE Vancomycin HCl 1.5 gm/ Sodium 250 mls @ 150 mls/hr 07/16/19 18:08 Chloride IV 07/16/19 19:47 NOW STA Discontinued Medications Generic Name Dose Route Start Last Admin Trade Name Freq PRN Reason Stop Dose Admin Oxycodone/Acetaminophen 1 tab 07/16/19 16:14 07/16/19 16:38 Percocet 325-5 Mg PO 07/16/19 16:15 1 tab ONETIME STA Administration Oxycodone/Acetaminophen 1 tab 07/16/19 17:26 07/16/19 17:33 Percocet 325-5 Mg PO 07/16/19 17:27 1 tab ONETIME STA Administration - Radiology Interpretation Free Text/Narrative:: CXR-neg Departure - Departure Time of Disposition: 18:30 Disposition: DC/Tfer to Acute Hospital 02 Condition: Serious Clinical Impression: Cellulitis of leg, left Sepsis Qualifiers: Sepsis type: sepsis due to unspecified organism Sepsis acute organ dysfunction status: without acute organ dysfunction Qualified Code(s): A41.9 - Sepsis, unspecified organism - Discharge Information Referrals: Adina Aguilera MD [Primary Care Provider] - Forms: ED Department Discharge Sepsis Event Note - Focused Exam Vital Signs: Vital Signs Temp Pulse Resp BP Pulse Ox 07/16/19 16:56 36.3 C 96 18 141/79 H 90 L 07/16/19 16:03 36.3 C 96 18 141/79 H 90 L Date Exam was Performed: 07/16/19 Time Exam was Performed: 18:10 - My Orders Last 24 Hours: My Active Orders 07/16/19 16:48 CXR [Chest 1V Frontal] [CR] Stat 07/16/19 16:51 UA W/MICROSCOPIC [URIN] Stat 07/16/19 17:40 Sodium Chloride 0.9% [Normal Saline] 1,000 ml IV .BOLUS 07/16/19 18:08 Vancomycin 1.5 gm Sodium Chloride 0.9% [Normal Saline] 250 ml IV NOW - Assessment/Plan Last 24 Hours: My Active Orders 07/16/19 16:48 CXR [Chest 1V Frontal] [CR] Stat 07/16/19 16:51 UA W/MICROSCOPIC [URIN] Stat 07/16/19 17:40 Sodium Chloride 0.9% [Normal Saline] 1,000 ml IV .BOLUS 07/16/19 18:08 Vancomycin 1.5 gm Sodium Chloride 0.9% [Normal Saline] 250 ml IV NOW
[2019-07-16] MEDS ORDERED: Sodium Chloride 0.9% 1,000 ML IV ONE (17:40)
[2019-07-16 18:41] VITALS: BP 163/67; PULSE 87
--- NOTE | 2019-07-17 08:57 | CR ---
CHEST: Portable 07/16/2019 at 5:09 PM CLINICAL HISTORY:Leukocytosis COMPARISON:2018 FINDINGS: Patient has had previous sternotomy. The heart size, pulmonary vascular and hilar structures are normal. No infiltrate effusion or pneumothorax is seen. There is mild interstitial prominence which appears chronic. IMPRESSION: No acute cardiopulmonary process.
== END 2019-07-16 19:24 ==
LOC: JP.ED 15:41
DX: A41.9 Sepsis, unspecified organism (principal); L03.116 Cellulitis of left lower limb; I25.2 Old myocardial infarction; I25.10 Atherosclerotic heart disease of native coronary artery without angina pectoris; J44.9 Chronic obstructive pulmonary disease, unspecified; E11.9 Type 2 diabetes mellitus without complications; Z88.5 Allergy status to narcotic agent; Z79.82 Long term (current) use of aspirin
CPT/HCPCS: 36415; 71045; 80048; 83605; 85027; 85379; 86140; 96361; 96365; 99284; A9270; J3370; J7030; J7050; 99285